=== PATIENT | male | born 1950 | race Caucasian/White ===

== ENCOUNTER 2017-04-11 16:31 | Inpatient (IN) | payer OTHER, MEDICARE ==
[~2017-04-11] VITALS: Ht 177.8 cm; Wt 68.0 kg
[~2017-04-11 16:31] MED LIST: AUGMENTIN 875-1 EACH PO; AUGMENTIN 875875 MG PO; BACITRACIN28.4 GM TOP; BOTOX SC; BOTOX200 UNIT AD; CELEBREX100 M1 PO; CELEBREX200 M1 PO; CELECOXIB200 M1 PO; CYCLOBENZAPRINE5 M2 PO; CYMBALTA60 M1 PO; DEXILANT60 M1 PO; DIAZEPAM5 M1 PO; DILAUDID2 MG PO; DOCUSATE SODIU100 M3 PO; IMITREX50 M1 PO; IMITREX50 MG PO; IMITREX6 MG/0.52 INJ; KEFLEX250 M1 PO; LYRICA300 M1 PO; MIRALAX119 GM PO; MULTIVITAMINS1 EAC9 PO; NEURONTIN300 MG PO; NEXIUM OTC PO; ONDANSETRON4 MG PO; OXYCODONE HCL5 M1 PO; PERCOCET 325 MG1 TA2 PO; PERCOCET 7.5-31 EACH PO; REGLAN10 MG PO; SUMATRIPTA6 MG/0.52 AD; TRAMADOL HCL50 M1 PO; VALIUM5 M1 PO; ZOFRAN ODT4 MG SL; ZOFRAN4 MG PO; ZOLPIDEM TART10 MG PO; ZOLPIDEM TARTRA10 M1 PO
[2017-04-11 17:01] LABS: ABSOLUTE BASOPHIL COUNT 0 /CUMM (0.0-0.2); ABSOLUTE EOSINOPHIL COUNT 0 /CUMM (0.0-0.7); ABSOLUTE GRANULOCYTE CT 17.1 /CUMM (1.4-6.5); ABSOLUTE LYMPH COUNT 0.6 /CUMM (1.2-3.4); ABSOLUTE MONOCYTE COUNT 0.4 /CUMM (0.10-0.60); BASOPHIL % 0.1 % (0.0-2.0); EOSINOPHIL % 0.1 % (0-5); HEMATOCRIT 50.4 % (42-52); MEAN CORPUSCULAR HGB CONC 33.4 G/DL (33.0-37.0); MEAN CORPUSCULAR VOLUME 86.8 FL (80.0-94.0); MEAN PLATELET VOLUME 9.7 FL (7.4-10.4); PLATELET COUNT 245 /CUMM (130-400); RBC DISTRIBUTION WIDTH 15.9 % (11.5-14.5); RED BLOOD CELL CT 5.81 /CUMM (4.70-6.10); WHITE BLOOD CELL COUNT 18.1 /CUMM (4.8-10.8)
--- NOTE | 2017-04-11 17:11 | ED GENERAL ADULT ---
History of Present Illness General Chief Complaint: General Adult Stated Complaint: "DR SENT HIM FOR INFECTION" Source: patient, family, old records Exam Limitations: no limitations Vital Signs & Intake/Output Vital Signs & Intake/Output Vital Signs Date Time Temp Pulse Resp B/P B/P Pulse O2 O2 Flow FiO2 Mean Ox Delivery Rate 04/11 2220 98.2 95 14 117/72 96 Nasal 2.0L Cannula 04/11 2102 98.8 100 16 121/74 92 Nasal 1.5L Cannula 04/11 1823 Nasal 2.0L Cannula 04/11 1637 97.6 102 15 113/75 89 Room Air Room Air ED Intake and Output 04/12 0000 04/11 1200 Intake Total 0 Output Total Balance 0 Intake, Oral 0 Patient 150 lb Weight Weight Reported by Patient Measurement Method Allergies Coded Allergies: Sulfa (Sulfonamide Antibiotics) (Severe, TONGUE SWELLING, RASH 04/11/17) Reconcile Medications Celecoxib 200 MG CAPSULE 1 CAP PO BID PAIN/INFLAMMATION (Reported) Dexlansoprazole (Dexilant) 60 MG CAP.BP 1 CAP PO DAILY GERD (Reported) Duloxetine HCl (Cymbalta) (Unknown Strength) CAPSULE.DR (Unknown Dose) PO BID NEUROPATHY (Reported) Morphine Sulfate 15 MG TABLET 1 TAB PO BID PAIN (Reported) Multiple Vitamin (Multivitamins) 1 EACH TABLET 1 TAB PO DAILY SUPPLEMENT ( Reported) Onabotulinumtoxina (Botox) 200 UNIT VIAL 1 VIAL AD AD PRN MIGRAINES (Reported ) Pregabalin (Lyrica) 300 MG CAPSULE 1 CAP PO BID NERVE PAIN (Reported) Sumatriptan Succinate 6 MG/0.5 ML PEN.INJCTR 6 MG AD AD PRN MIGRAINES ( Reported) Sumatriptan Succinate (Imitrex) 50 MG TABLET 1 TAB PO AD PRN MIGRAINES ( Reported) Zolpidem Tartrate 10 MG TABLET 1 TAB PO QPM SLEEP (Reported) Triage Note: PT SENT TO ED BY DR. ELAINE (NECK AND BACK SPECIALIST) FOR WORK UP OF ?INFECTED SPINE. PT HAD SPINAL DISC BIOPSY LAST SATURDAY WITH DR. MENDOSA AND HAS A RAPID DECLINE IN MENTATION (CONFUSION, LETHARGY, TALKING ABOUT THINGS THAT AREN'T THERE - PER ). PT ALSO HAS HAD FREQUENT FALLS. AFEBRILE IN TRIAGE, BUT VERY PALE AND HYPOXIC 88% RA. PLACED ON 2L NC OXYGEN. TAKEN TO EKG [facility] FOR EKG AND BLOOD WORK. Triage Nurses Notes Reviewed? yes Onset: Gradual Duration: day(s): Timing: recent history Injury Environment: home Severity: severe HPI: 66yo male with hx of migraines, pneumonia present to ED sent in by Orthopedic for further evaluation of AMS. Patient reports for the past 3 days he has felt general malaise, confusion, intermittent hallucinations. Patient's states the patient has been not acting himself, worsening over the past 3 days. Patient also with vomiting and pale appearance. states the patient has been admitted in the past for complicated infections. The patient had L4-5 bone biopsy with IR on 04/01/17 to evaluate for infection however is unaware of for results showed. Patient reports generalized headache for the past few days. He also reports cough and mentally productive for the past several days. He went to follow-up with a new orthopedic doctor regarding his back today. Physician saw that patient appeared ill and referred him to the hospital for evaluation. The patient denies fevers, chills, abdominal pain, dyspnea, chest pain. (Domonique Alvarado) Past History Travel History Traveled to [place] past 21 day No Medical History Any Pertinent Medical History? 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 No (Domonique Alvarado) Review of Systems Review of Systems Constitutional: Reports: see HPI. EENTM: Reports: no symptoms. Respiratory: Reports: see HPI. Cardiovascular: Reports: no symptoms. GI: Reports: see HPI. Genitourinary: Reports: no symptoms. Musculoskeletal: Reports: see HPI. Skin: Reports: no symptoms. Neurological/Psychological: Reports: see HPI. Hematologic/Endocrine: Reports: no symptoms. Immunologic/Allergic: Reports: no symptoms. All Other Systems: Reviewed and Negative (Domonique Alvarado) Physical Exam Physical Exam General Appearance: well developed/nourished, alert, awake Head: atraumatic, normal appearance Eyes: Bilateral: normal appearance, PERRL, EOMI. 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 No CVA/TIA Diagnosis: No Sepsis Present: Yes Sepsis Focused Exam Completed? Yes (Domonique Alvarado) ED Sepsis Exam Date of Focused Sepsis Exam: 04/11/17 Time of Focused Sepsis Exam: 2219 Sepsis Cardiac Exam: Regular Rate/Rhythm Sepsis Resp Exam: Rales (LEFT POSTERIOR LOBES) Sepsis Cap Refill Exam: <2 Sec Sepsis Peripheral Pulse Exam: Normal Sepsis Peripheral Pulse Location: Radial Sepsis Skin Color Exam: Pale Skin Temp/Moisture Exam: Warm/Dry (Domonique Alvarado) Progress Differential Diagnoses I considered the following diagnoses in my evaluation of the patient: [Sepsis, pneumonia, meningitis, spinal abscess, osteomyelitis, acute kidney injury] Plan of Care: Orders Procedure Date/time Status Regular Diet 04/12 B Active LACTIC ACID 04/12 0119 Active CEREBROSPINAL FLUID CULTURE 04/11 2331 Active CYTOLOGY SPECIMEN 04/11 2331 Active CSF TOTAL PROTEIN 04/11 2331 Active CEREBROSPINAL FL CELL CT 04/11 2331 Active CSF GLUCOSE 04/11 2331 Active OXYGEN SETUP (GEN) 04/11 2235 Active Saline Lock 04/11 2235 Active Admit to inpatient 04/11 2235 Active Vital Signs 04/11 2235 Active Activity/Ambulation 04/11 2235 Active Code Status 04/11 2235 Active LACTIC ACID 04/11 221 Active RAPID VIRAL INFLUENZA A 04/11 2015 Complete URINE DRUG SCREEN FOR ER ONLY 04/11 1757 Active URINALYSIS 04/11 1757 Active Add-on Test (ER Only) 04/11 1723 Active BLOOD CULTURE 04/11 1723 Active LACTIC ACID 04/11 1653 Complete C-REACTIVE PROTEIN 04/11 165 Complete EKG 04/11 1650 Active HIGH SENSITIVITY CRP 04/11 164 Complete WESTERGREN SED RATE 04/11 164 Complete COMPREHENSIVE METABOLIC PANEL 04/11 1646 Complete CBC WITHOUT DIFFERENTIAL 04/11 1646 Complete Laboratory Tests 04/11/17 2330: CSF Glucose Pending, CSF Total Protein Pending 04/11/17 2330: CSF WBC Pending, CSF RBC Pending, CSF Comment Pending 04/11/17 1653: Anion Gap 20 H, Estimated GFR 22 L, BUN/Creatinine Ratio 11.0, Glucose 120 H, Lactic Acid 2.5 H, Calcium 9.9, Total Bilirubin 0.9, AST 19, ALT 17 L, Alkaline Phosphatase 107, C-Reactive Prot, Quant > 9.0 H, C-React Prot High Sens > 15.0 H, Total Protein 7.4, Albumin 4.2, Globulin 3.2, Albumin/Globulin Ratio 1.3, CBC w Diff MAN DIFF ORDERED, RBC 5.81, MCV 86.8, MCH 29.0, MCHC 33.4, RDW 15.9 H, MPV 9.7, Gran % 94.0 H, Lymphocytes % 3.3 L, Monocytes % 2.5, Eosinophils % 0.1, Basophils % 0.1, Absolute Granulocytes 17.1 H, Segmented Neutrophils 85 H, Band Neutrophils 9 H, Absolute Lymphocytes 0.6 L, Lymphocytes 5 L, Monocytes 1 L, Absolute Monocytes 0.4, Absolute Eosinophils 0 , Absolute Basophils 0, Platelet Estimate ADEQUATE, Normocytic RBCs VERIFIED, Normochromic RBCs VERIFIED, ESR Westergren 2 Microbiology 04/11 2337 NASOPHARYN: Influenza Virus A & B Rapid Smear - COMP 04/11 2329 CENT N S: CSF Culture - RECD 04/11 2329 CENT N S: Gram Stain - RECD 04/11 1813 BLOOD: Blood Culture - RECD 04/11 1803 BLOOD: Blood Culture - RECD Spoke with Dr. Mendosa regarding this patient. They were evaluating for ? discitis/osteomyelitis L4-L5. Biopsy taken however no cultures were sent. If patient stays Dr. Mendosa would like re-biopsy for pathology and culture of L4- L5. Dr. Mendosa is available today and tomorrow for futher questions from the hospital team. This patient with signs of sepsis based on his blood work and clinical presentation. He was medicated with broad-spectrum antibiotics and given 2 L normal saline based on sepsis protocol. Discussed this patient with hospitalist Dr. Chirinos regarding his general medicine admission. Recommended we obtain LP prior to admission. Procedure performed by Dr. Ramos. Patient's son gave verbal consent prior to procedure. Diagnostic Imaging: Viewed by Me: Radiology Read. Discussed w/RAD: Radiology Read. Radiology Impression: PATIENT: DENI LIVINGSTON PRESENT AGE: 66 PATIENT ACCOUNT NO: [id number] : 52 LOCATION: [facility] ORDERING PHYSICIAN: Domonique MOCTEZUMA SERVICE DATE: 04/11/17 EXAM TYPE: RAD - XRY-CHEST XRAY, TWO VIEWS EXAMINATION: XR CHEST CLINICAL INFORMATION : Altered mental status. Abnormal breath sounds. COMPARISON: CT chest 2015. TECHNIQUE: 2 views of the chest were obtained. FINDINGS: No acute abnormality. The lungs are clear. There is no pulmonary vascular congestion or pleural effusion. There is no pneumothorax. The heart size is normal and the cardiac and the mediastinal contours are normal. There is no pulmonary vascular congestion. Orthopedic plate and screw at lower cervical spine. Multilevel degenerative spondylosis of dorsal spine. IMPRESSION: Unremarkable examination. DICTATED BY: Dameon Sanchez MD DATE/TIME DICTATED:04/11/171902 PUBLIC HEALTH TRAINING ASSISTANT :ALEKSANDER DATE/TIME TRANSCRIBED:04/11/171902 CONFIDENTIAL, DO NOT COPY WITHOUT APPROPRIATE AUTHORIZATION. <Electronically signed in Other Vendor System> SIGNED BY: Dameon Sanchez MD 04/11/171906, PATIENT: DENI LIIVNGSTON PRESENT AGE: 66 PATIENT ACCOUNT NO: [id number] : LOCATION: [facility] ORDERING PHYSICIAN: Domonique MOCTEZUMA SERVICE DATE: 04/11/17 EXAM TYPE: CAT - CT HEAD WO IV CONTRAST EXAMINATION: CT HEAD WITHOUT CONTRAST CLINICAL INFORMATION: Altered mental status. Rule out intracranial hemorrhage. COMPARISON: Prior CT from 03/22/2017. TECHNIQUE: Contiguous axial imaging was performed from the skull base to vertex without intravenous administration of contrast. The examination is limited by motion artifacts. DLP: 1082.08 mGy-cm FINDINGS: There is no evidence of acute intracranial hemorrhage or territorial infarction. No abnormal mass effect or midline shift is seen. Ahn to white matter differentiation is well preserved. No extra-axial fluid collections are identified. A small partially calcified meningioma along the mid right parietal convexity is stable. The ventricles are normal in size. Mild chronic white matter microangiopathic changes are again visible. The osseous structures and soft tissues are normal. The mastoid air cells and visualized portions of the paranasal sinuses are well aerated. IMPRESSION: No acute intracranial hemorrhage or territorial infarction. Slightly limited study with motion artifacts. DICTATED BY: Jigar Worthy MD DATE/TIME DICTATED:04/11/172044 PUBLIC HEALTH TRAINING ASSISTANT:ALEKSANDER DATE/TIME TRANSCRIBED:2044 CONFIDENTIAL, DO NOT COPY WITHOUT APPROPRIATE AUTHORIZATION. < Electronically signed in Other Vendor System> SIGNED BY: Jigar Worthy MD 04/11/172049, PATIENT: DENI LIVINGSTON PRESENT AGE: 66 PATIENT ACCOUNT NO: [id number] : 52 LOCATION: [facility] ORDERING PHYSICIAN: Domonique MOCTEZUMA SERVICE DATE: 04/11/17 EXAM TYPE: CAT - CT ABD & PELVIS W/O IV CONTRAS EXAMINATION: CT ABDOMEN AND PELVIS WITHOUT CONTRAST CLINICAL INFORMATION: Sepsis, acute kidney insufficiency. L5 hardware failure. COMPARISON: CT lumbar spine 03/22/2017. CT abdomen and pelvis 01/06/2016. TECHNIQUE: Multidetector volumetric imaging was performed from the superior aspect of the liver through the pubic symphysis. Sagittal and coronal reformatted images were obtained on the technologist's workstation. DLP: 650 mGy -cm FINDINGS: LUNG BASES: Mild, ill-defined airspace opacities at the lung bases obscured by respiratory motion artifact. This could represent atelectasis or developing pneumonia. LIVER, GALLBLADDER, AND BILIARY TREE: The unenhanced liver is normal in size, shape, and attenuation. No focal hepatic lesion or biliary ductal dilatation is present. The gallbladder is distended. No biliary ductal dilatation. PANCREAS: Unremarkable. SPLEEN: Unremarkable. ADRENAL GLANDS: Unremarkable. KIDNEYS AND URETERS: Several nonobstructing calculi, unchanged. No hydronephrosis. BLADDER: Unremarkable. GASTROINTESTINAL TRACT: The stomach is markedly distended. Otherwise unremarkable. ABDOMINAL WALL: No significant hernia is appreciated. LYMPH NODES: Normal. VASCULAR: Unremarkable. PELVIC VISCERA: Unremarkable. OSSEOUS STRUCTURES: No significant change in the appearance of the periprosthetic lucencies and areas of osteolysis at the L5 level with underlying fracture at the junction of the vertebral body with the pedicles with pseudoarthrosis. No paraspinal fluid collection. IMPRESSION: No change in the appearance of the hardware failure at L5 as described which has recently been biopsied. No paraspinal fluid collection. Bilateral nephrolithiasis with no hydronephrosis. Marked gastric distention. The gallbladder is also significantly distended. Mild ill-defined patchy airspace opacities at the lung bases which may represent atelectasis. DICTATED BY: Abelardo Lima MD DATE/TIME DICTATED:04/11/172052 PUBLIC HEALTH TRAINING ASSISTANT: ALEKSANDER DATE/TIME TRANSCRIBED:04/11/172052 CONFIDENTIAL, DO NOT COPY WITHOUT APPROPRIATE AUTHORIZATION. <Electronically signed in Other Vendor System> SIGNED BY: Abelardo Lima MD 04/11/172156 Initial ED EKG: SINUS RHYTHM @91BPM, INCREASED ST SEGMENTS IN INFERIOR LEADS Prior EKG: changed (04/28/15) (Domonique Alvarado) Departure Departure Disposition: STILL A PATIENT Condition: Stable Clinical Impression Primary Impression: Pneumonia Secondary Impressions: Sepsis Referrals: Patria DOUGLAS,Santiago Hough (PCP/Family) Departure Forms: Customer Survey General Discharge Information Admission Note Spoke With: Jarvis Gan MD Documentation of Exam: Documentation of any treatments & extenuating circumstances including Concerns Regarding Discharge (functional status, medication knowledge or non-compliance, living conditions, etc.) that warrant an admission rather than observation: [ Patient with signs of sepsis, possible pneumonia, requiring IV antibiotics, follow up with blood cultures, follow-up with cerebrospinal fluid analysis, ID consult, repeat labs, IV fluids, premature discharge could be medically safe] (Domonique Alvarado) PA/[employer]ER [employer]PAQUER Co-Sign Statement Statement: ED Attending supervision documentation- x I saw and evaluated the patient. I have also reviewed all the pertinent lab results and diagnostic results. I agree with the findings and the plan of care as documented in the PA's/INKER [employer] OPAQUER's documentation. Altered mental status s/p lumbar biopsy with rales leukocytosis elevated lactic acid pneumonia on CT scan [] I have reviewed the ED Record and agree with the PA's/INKER [employer]PAQUER's documentation. [] Additions or exceptions (if any) to the PAs/INKER [employer] OPAQUER's note and plan are summarized below: [] (Rachel DOUGLAS,Roman) Procedures Additional Procedures Additional Procedures: lumbar puncture Progress: Patient position prepped and draped. 1% lidocaine 5 ml infiltrated to L4-5 interspace. 5 ml clear spinal fluid taken without complication. Patient tolerated procedure without complication. (Roman Ramos MD) Critical Care Note Critical Care Note Critical Care Time: 30-74 min (Noy MOCTEZUMA,Domonique Sanchez)
--- NOTE | 2017-04-11 19:07 | RADIOLOGY REPORT ---
EXAMINATION: XR CHEST CLINICAL INFORMATION: Altered mental status. Abnormal breath sounds. COMPARISON: CT chest 11/14/2015. TECHNIQUE: 2 views of the chest were obtained. FINDINGS: No acute abnormality. The lungs are clear. There is no pulmonary vascular congestion or pleural effusion. There is no pneumothorax. The heart size is normal and the cardiac and the mediastinal contours are normal. There is no pulmonary vascular congestion. Orthopedic plate and screw at lower cervical spine. Multilevel degenerative spondylosis of dorsal spine. IMPRESSION: Unremarkable examination.
[2017-04-11] MEDS ORDERED: MORPHINE SULFAT15 M4 PO (19:46)
--- NOTE | 2017-04-11 20:50 | CT SCAN REPORT ---
EXAMINATION: CT HEAD WITHOUT CONTRAST CLINICAL INFORMATION: Altered mental status. Rule out intracranial hemorrhage. COMPARISON: Prior CT from 03/22/2017. TECHNIQUE: Contiguous axial imaging was performed from the skull base to vertex without intravenous administration of contrast. The examination is limited by motion artifacts. DLP: 1082.08 mGy-cm FINDINGS: There is no evidence of acute intracranial hemorrhage or territorial infarction. No abnormal mass effect or midline shift is seen. Ahn to white matter differentiation is well preserved. No extra-axial fluid collections are identified. A small partially calcified meningioma along the mid right parietal convexity is stable. The ventricles are normal in size. Mild chronic white matter microangiopathic changes are again visible. The osseous structures and soft tissues are normal. The mastoid air cells and visualized portions of the paranasal sinuses are well aerated. IMPRESSION: No acute intracranial hemorrhage or territorial infarction. Slightly limited study with motion artifacts.
--- NOTE | 2017-04-11 21:57 | CT SCAN REPORT ---
EXAMINATION: CT ABDOMEN AND PELVIS WITHOUT CONTRAST CLINICAL INFORMATION: Sepsis, acute kidney insufficiency. L5 hardware failure. COMPARISON: CT lumbar spine 03/22/2017. CT abdomen and pelvis 01/06/2016. TECHNIQUE: Multidetector volumetric imaging was performed from the superior aspect of the liver through the pubic symphysis. Sagittal and coronal reformatted images were obtained on the technologist's workstation. DLP: 650 mGy-cm FINDINGS: LUNG BASES: Mild, ill-defined airspace opacities at the lung bases obscured by respiratory motion artifact. This could represent atelectasis or developing pneumonia. LIVER, GALLBLADDER, AND BILIARY TREE: The unenhanced liver is normal in size, shape, and attenuation. No focal hepatic lesion or biliary ductal dilatation is present. The gallbladder is distended. No biliary ductal dilatation. PANCREAS: Unremarkable. SPLEEN: Unremarkable. ADRENAL GLANDS: Unremarkable. KIDNEYS AND URETERS: Several nonobstructing calculi, unchanged. No hydronephrosis. BLADDER: Unremarkable. GASTROINTESTINAL TRACT: The stomach is markedly distended. Otherwise unremarkable. ABDOMINAL WALL: No significant hernia is appreciated. LYMPH NODES: Normal. VASCULAR: Unremarkable. PELVIC VISCERA: Unremarkable. OSSEOUS STRUCTURES: No significant change in the appearance of the periprosthetic lucencies and areas of osteolysis at the L5 level with underlying fracture at the junction of the vertebral body with the pedicles with pseudoarthrosis. No paraspinal fluid collection. IMPRESSION: No change in the appearance of the hardware failure at L5 as described which has recently been biopsied. No paraspinal fluid collection. Bilateral nephrolithiasis with no hydronephrosis. Marked gastric distention. The gallbladder is also significantly distended. Mild ill-defined patchy airspace opacities at the lung bases which may represent atelectasis.
--- NOTE | 2017-04-12 01:45 | History & Physical ---
Ashley DOUGLAS,Melania 04/12/17 0144: General Information and HPI MD Statement: I have seen and personally examined DENI LIVINGSTON and documented this H&P. The patient is a 66 year old M who presented with a patient stated chief complaint of [altered mental status]. Source of Information: patient, family, old records Exam Limitations: confusion, poor historian History of Present Illness: 66 year old patient with a PMH significant for gastroparesis, migrains, GERD, chronic pain and a history of low back and neck surgeries, presented to [place] ED with his for altered mental status. Patient has a history of multiple back surgeries and he follow-up with Dr. Mendosa, he had CT and MRI done in the past few months and he had IR guided spine biopsy one week ago in [facility] however when he came to the ED they found out that the biopsy was never sent for culture. The patient's noticed that 3 days ago he started getting more confused and having twitches. He also had severe malaise and pallor, nausea, vomiting and decreased oral intake. He also endorses mild cough productive of whitish sputum Patient went to the [facility] orthopedic for a second opinion regarding back surgery for his chronic pain however he was found to be very weak and altered and was advised to come to the ED for evaluation. The patient also follow up with pain specialist Dr. Gerber who prescribed him PO morphine sulfate for his pain control. Patient denies fever, chills, chest pain, neck stiffness or worsening of his back pain. Patient was in his usual state of health 3 weeks ago except for chronic back pain and he said he was able to swim 3 hours daily. Patient gets home and use walker for ambulation. ED course: Vital signs: Blood pressure 124/64, pulse 88, temperature 98.4, pulse was 96 on 2 L Labs on admission: WBC 18.1, left shift, bands 9, sodium 143, potassium 4.7, BUN 32, creatinine 2.9, glucose 120, CRP 9, Patient had lumbar tap and CSF analysis showed RBCs of 58, glucose 82, protein 70, WBC 1 #13 and showed no acute intracranial hemorrhage or infarction Allergies/Medications Allergies: Coded Allergies: Sulfa (Sulfonamide Antibiotics) (Severe, TONGUE SWELLING, RASH 04/11/17) Past History Travel History Traveled to [place] past 21 day No Medical History Neurological: MIGRAINES EENT: NONE Cardiovascular: NONE Respiratory: NONE Gastrointestinal: GASTROPARESIS Hepatic: NONE Renal: NONE Musculoskeletal: fibromyalgia Psychiatric: NONE Endocrine: NONE Blood Disorders: NONE Cancer(s): NONE 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 Ambulation: independent IADLs Independent: shopping, housework, finances, food prep, telephone, transportation , medication admin. Review of Systems Review of Systems Constitutional: Reports: malaise, weakness. Cardiovascular: Denies: chest pain, edema, orthopena, palpitations, peripheral edema. Respiratory: Reports: cough, sputum production. GI: Reports: vomiting. Genitourinary: Denies: no symptoms. Musculoskeletal: Reports: back pain. Skin: Denies: no symptoms. Exam & Diagnostic Data Last 24 Hrs of Vital Signs/I&O Vital Signs Date Time Temp Pulse Resp B/P B/P Pulse O2 O2 Flow FiO2 Mean Ox Delivery Rate 04/12 0625 98.4 88 20 138/74 95 Nasal Cannula 04/12 0529 Nasal 2.0L Cannula 04/12 0523 98.4 88 18 124/64 96 Nasal 2.0L Cannula 04/11 2221 98.2 95 14 117/72 96 Nasal 2.0L Cannula 04/11 2103 98.8 100 16 121/74 92 Nasal 1.5L Cannula 04/11 1823 Nasal 2.0L Cannula 04/11 1637 97.6 102 15 113/75 89 Room Air Room Air Intake & Output 04/12 0800 04/12 0000 04/11 1600 Intake Total 250 0 Output Total Balance 250 0 Intake, IV 250 Intake, Oral 0 Patient 150 lb 150 lb Weight Weight Reported by Patient Reported by Patient Measurement Method Physical Exam General Appearance Cooperative, Flactuating level of consciousness HEENT Atraumatic, PERRLA, EOMI, Mucous Membr. moist/pink, neck is supple, negative kernigs and brudzenski sign Neck Supple, No JVD Cardiovascular Normal S1, Normal S2, No Murmurs Lungs Clear to Auscultation Abdomen Normal Bowel Sounds, Soft, No Tenderness Neurological Normal Speech, Strength at 5/5 X4 Ext, Normal Tone Extremities No Clubbing, No Cyanosis, No Edema Assessment/Plan Assessment: 66 year old patient with a PMH significant for gastroparesis, migrains, GERD, chronic pain and a history of low back and neck surgeries, presented to [place] ED with his for altered mental status. Patient has a history of multiple back surgeries and he follow-up with Dr. Mendosa, he had CT and MRI done in the past few months and he had IR guided spine biopsy one week ago in [facility] however when he came to the ED they found out that the biopsy was never sent for culture. The patient's noticed that 3 days ago he started getting more confused and having twitches. Patient was found to have leukocytosis with left shift and bandemia, mild ill-defined patchy airspace opacities at the lung bases, bilateral nephrolithiasis. Patient received 1 dose of vancomycin and ceftriaxone in the ED, LP was done however it didn't show any signs of bacterial meningitis #? CAP: Patient reports having mild cough with clear sputum CT chest showed patchy airspace opacities at the lung bases consistent with CPAP versus atelectasis Admit to general medicine floor IV ceftaz/vancomycin TRC/nebs Gentle IV fluid hydration Vitals every shift #Back pain with history of multiple vertebral fusion surgeries Orthopedic consult appreciated ID consult appreciated Pain management with by mouth Tylenol, IV Tylenol, morphine sulfate by mouth #AK I Most likely due to poor oral intake Encourage oral intake Gentle IV fluid hydration Monitoring of BEP Chronic medical condition: Continue home meds Full code DVT prophylaxis with subcutaneous heparin Regular diet As Ranked By This Provider Problem List: 1. Pneumonia Core Measures/Misc (11/04) Acute Coronary Syndrome ACS Diagnosis: No Congestive Heart Failure Congestive Heart Failure Diagnosis No Cerebrovascular Accident CVA/TIA Diagnosis: No VTE (View Protocol) VTE Risk Factors Age>40 No Mechanical VTE Prophylaxis d/t N/A MechProphylax Ordered No VTE Pharm Prophylaxis d/t NA PharmProphylax ordered Sepsis (View protocol) Sepsis Present: No Michael Duong 04/12/17 0431: Resident Review Statement Resident Statement: examined this patient, discussed with internal controls specialist, agreed with internal controls specialist, discussed with family, reviewed EMR data (avail), discussed with nursing , discussed with case mgmt, reviewed images, amended to note Other Findings: This is 66 year old patient with medical history of gastroparesis, migrains, GERD, chronic pain and a history of low back and neck surgeries. He presented to emergency department after bite sent by his orthopedic for further evaluation of altered mental status. Patient has a history of multiple back surgeries and he follow-up with Dr. Mendosa, he had CT and MRI done in the past few months and he had IR guided spine biopsy one week ago in [facility]. The patient's stated that 3 days ago he started getting more confused and having twitches movement. Also she noted that they become severly malaise and pallor, nausea, vomiting and decreased oral intake. Patient also complaints of abdominal discomfort and he think it's due to his gastroparesis. Lumbar puncture was done in the ED, the knee showed a count showed WBC of 1, glucose 86, protein 76 that ruled out bacterial meningitis. Physical examination, lab and imaging as above. Problem list: -Pneumonia we will treat as HCAP. -Confusion, altered mental status -Bilateral kidney stone -Acute kidney injury/dehydration -Leukocytosis Plan: -Admit patient to general medicine floor -Vitals every shift -Continue IV vancomycin and IV Fortaz -Obtain sputum culture, strep and Legionella urine antigen -Follow-up blood, CSF bloody fluid culture and final analysis. -ID consultation in a.m. -IV fluid hydration of D5 normal saline at 125 mL per hour -Recheck CBC and basic panel electrolytes in a.m -We start the patient home medication of morphine in a.m. -Orthopedic consultation in a.m. -Please confirm the patient home medications -Regular diet -Pain pathway -DVT prophylaxis subcutaneous heparin -Full code Malik DOUGLAS, [facility] 04/12/17 0846: General Information and HPI Allergies/Medications Home Med list Celecoxib 200 MG CAPSULE 1 CAP PO BID PAIN/INFLAMMATION (Reported) Dexlansoprazole (Dexilant) 60 MG CAP.BP 1 CAP PO DAILY GERD (Reported) Duloxetine HCl (Cymbalta) (Unknown Strength) CAPSULE.DR 30 MG PO BID NEUROPATHY (Reported) Morphine Sulfate 15 MG TABLET 1 TAB PO BID PAIN (Reported) Multiple Vitamin (Multivitamins) 1 EACH TABLET 1 TAB PO DAILY SUPPLEMENT ( Reported) Onabotulinumtoxina (Botox) 200 UNIT VIAL 1 VIAL AD AD PRN MIGRAINES (Reported ) Pregabalin (Lyrica) 300 MG CAPSULE 1 CAP PO BID PAIN (Reported) Sumatriptan Succinate 6 MG/0.5 ML PEN.INJCTR 6 MG AD AD PRN MIGRAINES ( Reported) Sumatriptan Succinate (Imitrex) 50 MG TABLET 1 TAB PO AD PRN MIGRAINES ( Reported) Zolpidem Tartrate 10 MG TABLET 1 TAB PO QPM SLEEP (Reported) Attending MD Review Statement Attending Statement Attending MD Statement: examined this patient, discuss w/resident/PA/WINDOWS TECHNICAL SPECIALIST, agreed w/resident/PA/WINDOWS TECHNICAL SPECIALIST, reviewed images, amended to note Attending Assessment/Plan: 66 yo M with h/o GERD, gastroparesis, chronic pain on oxycodone (pain management Dr. Carlos at [facility]), multiple lumbar surgeries is here for evaluation of altered mental status, malaise, nausea and poor PO intake. Patient follows with Dr. Mendosa and had a L4-5 bone biopsy last week by IR, pathology negative for malignancy but no culture sent. Vitals: afebrile, HR 80-100's, BP 113/75, sats 89% RA --> 96% on 2L. Exam: awake , oriented x 2, dry mucous membranes, negative kernig's and brudzinski's sign, no nuchal rigidity, otherwise unremarkable exam. Labs: WBC 18, bands 9, AG 20, BUN 32, creat 2.9 (baseline 0.8), lactic acid 2.5 --> 1.1, CRP elevated. CXR: neg. CT head neg. CT Abd/pelvis: no change in appearance of hardware failure at L5, no paraspinal fluid collection, bilateral nephrolithiasis, marked gastric distension, gallbladder significantly distended, ill-defined patchy airspace opacitices at lung bases. EKG: sinus rhythm. LP done in ER with cell count of WBC 1, elevated glucose and protein. No signs of meningitis. Assessment and plan: 1. Sepsis 2. Altered mental status - disorientation 3. Acute hypoxic respiratory failure 4. Community acquired pneumonia vs HCAP 5. JULIUS 6. Lactic acidosis 7. Chronic back pain - Admit to general medicine - Panculture - TRC nebs - Urine legionella and strep Ag - IV ceftaz and vanco - IV hydration - Trend lactic acid and renal functions - Follow CSF analysis, culture - ID consult - Ortho consult - Pain management morphine IR DVT ppx Hep SC. Full code. Please confirm CMR in AM and resume home meds.
[2017-04-12 06:25] VITALS: BP 138/74
--- NOTE | 2017-04-12 08:58 | Admission Certification ---
Admission Certification Certification Statement - As attending physician, I certify that at the time of - admission, based on clinical presentation, severity of - symptoms, need for further diagnostic testing and - therapeutic interventions, and risk of adverse outcomes - without in-hospital treatment, in my clinical assessment, - this patient requires an acute hospital stay for a minimum - of two nights or longer. I have also considered psychsocial - factors such as support system, advanced age, financial - issues, cognitive issues, and failed out-patient treatments, - past re-admission history, safety of patient, and lack of - compliance as applicable. Specific rationale supporting this admission is: Sepsis, altered mental status, pneumonia, JULIUS, lactic acidosis.
[2017-04-12 09:13] LABS: ABSOLUTE BASOPHIL COUNT 0 /CUMM (0.0-0.2); ABSOLUTE EOSINOPHIL COUNT 0.1 /CUMM (0.0-0.7); ABSOLUTE LYMPH COUNT 0.2 /CUMM (1.2-3.4); ABSOLUTE MONOCYTE COUNT 0.1 /CUMM (0.10-0.60); BASOPHIL % 0.3 % (0.0-2.0); EOSINOPHIL % 3.8 % (0-5); GRANULOCYTE % 86.3 % (42.2-75.2); MEAN CORPUSCULAR HGB CONC 33.6 G/DL (33.0-37.0); MEAN CORPUSCULAR VOLUME 86.1 FL (80.0-94.0); MEAN PLATELET VOLUME 9.7 FL (7.4-10.4); PLATELET COUNT 170 /CUMM (130-400); RBC DISTRIBUTION WIDTH 15.6 % (11.5-14.5); RED BLOOD CELL CT 4.79 /CUMM (4.70-6.10)
[2017-04-12 09:18] LABS: HEMATOCRIT 41.3 % (42-52); WHITE BLOOD CELL COUNT 3.5 /CUMM (4.8-10.8)
[2017-04-12] MEDS ORDERED: LYRICA300 M1 PO (11:04)
--- NOTE | 2017-04-12 13:06 | Cons- Infect Disease ---
General Information and HPI Consulting Request Date of Consult: 04/12/17 Requested By: Angelica De León MD Reason for Consult: Rule out surgical site infection Source of Information: patient, family, old records Exam Limitations: confusion History of Present Illness: This is a 66-year-old man with a history of low back pain, status post multiple spinal procedures, most recently 1-1/2 years prior to admission, at which time he underwent revision decompression and instrumented fusion L2 to L5, which was complicated by a durotomy, with recurrent back pain over the last several months , managed by Pain management in [place] with steroid injections and morphine, with a CT of the lumbar spine 3 weeks prior to admission revealing findings consistent with 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 On admission he was afebrile with an O2 sat of 88% on room air. Laboratory data revealed a white blood cell count of 18,000, with 85 segs and 9 bands, H&H 17 and 50, ESR 2, BUN/creatinine 32 and 2.9, lactic acid 2.5, high sensitive CRP greater than 15, with normal liver enzymes. Chest x-ray was negative. CT of the head was negative for any acute process. CT of the abdomen and pelvis revealed no change in the appearance of the hardware failure at L5, with bilateral nephrolithiasis, marked gastric distention and mild ill-defined patchy opacities in the lung bases. A lumbar puncture was performed and revealed 1 white blood cell and an elevated protein of 70.. He was given Vancomycin, Ceftriaxone and Ceftazidime. He has remained afebrile overnight. He remains confused and is unable to provide an accurate history. Allergies/Medications Allergies: Coded Allergies: Sulfa (Sulfonamide Antibiotics) (Severe, TONGUE SWELLING, RASH 04/11/17) Home Med List: Celecoxib 200 MG CAPSULE 1 CAP PO BID PAIN/INFLAMMATION (Reported) Dexlansoprazole (Dexilant) 60 MG CAP.DR.BP 1 CAP PO DAILY GERD (Reported) Duloxetine HCl (Cymbalta) (Unknown Strength) CAPSULE.DR 30 MG PO BID NEUROPATHY (Reported) Morphine Sulfate 15 MG TABLET 1 TAB PO BID PAIN (Reported) Multiple Vitamin (Multivitamins) 1 EACH TABLET 1 TAB PO DAILY SUPPLEMENT ( Reported) Onabotulinumtoxina (Botox) 200 UNIT VIAL 1 VIAL AD AD PRN MIGRAINES (Reported ) Pregabalin (Lyrica) 300 MG CAPSULE 1 CAP PO BID PAIN (Reported) Sumatriptan Succinate 6 MG/0.5 ML PEN.INJCTR 6 MG AD AD PRN MIGRAINES ( Reported) Sumatriptan Succinate (Imitrex) 50 MG TABLET 1 TAB PO AD PRN MIGRAINES ( Reported) Zolpidem Tartrate 10 MG TABLET 1 TAB PO QPM SLEEP (Reported) Past History Travel History Traveled to [place] past 21 day No Medical History Blood Transfusion Hx: No Neurological: MIGRAINES EENT: NONE Cardiovascular: NONE Respiratory: NONE Gastrointestinal: GASTROPARESIS Hepatic: NONE Renal: NONE Musculoskeletal: fibromyalgia Psychiatric: NONE Endocrine: NONE Blood Disorders: NONE Cancer(s): NONE 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 Home Services at Home: None Smoking Status: Never Smoked Functional Ability ADLs Independent: dressing, eating, toileting, bathing. Ambulation: independent IADLs Independent: shopping, housework, finances, food prep, telephone, transportation , medication admin. Review of Systems Review of Systems All Other Systems: Reviewed and Negative Exam & Diagnostic Data Last 24 Hrs of Vital Signs/I&O Vital Signs Date Time Temp Pulse Resp B/P B/P Pulse O2 O2 Flow FiO2 Mean Ox Delivery Rate 04/12 06 98.4 88 20 138/74 95 Nasal Cannula 04/12 05 Nasal 2.0L Cannula 04/12 05 98.4 88 18 124/64 96 Nasal 2.0L Cannula 04/11 2220 98.2 95 14 117/72 96 Nasal 2.0L Cannula 04/113 98.8 100 16 121/74 92 Nasal 1.5L Cannula 04/11 1823 Nasal 2.0L Cannula 04/11 1637 97.6 102 15 113/75 89 Room Air Room Air Intake & Output 04/12 1600 04/12 0800 04/12 0000 Intake Total 250 0 Output Total Balance 250 0 Intake, IV 250 Intake, Oral 0 Number 1 Bowel Movements Patient 150 lb 150 lb Weight Weight Reported by Patient Reported by Patient Measurement Method Physical Exam Other Physical Findings: Afebrile. He is awake and alert, confused, but in no acute distress. Skin reveals no rash. HEENT negative. Neck is supple with no adenopathy. Lungs are clear. Heart regular rhythm with no murmur. Abdomen is soft, nontender with positive bowel sounds. Back no CVA tenderness. Extremities no cyanosis, clubbing or edema. Neuro is without focality. Last 24 Hours of Lab Results: Laboratory Tests 04/12 04/12 04/12 04/11 0851 0730 0119 2330 Chemistry Sodium (137 - 145 mmol/L) 139 Potassium (3.5 - 5.1 mmol/L) 3.7 Chloride (98 - 107 mmol/L) 108 H Carbon Dioxide (22 - 30 mmol/L) 19 L Anion Gap (5 - 16) 12 BUN (9 - 20 mg/dL) 32 H Creatinine (0.7 - 1.2 mg/dL) 1.9 H Estimated GFR (>60 ml/min) 36 L BUN/Creatinine Ratio (7 - 25 %) 16.8 Lactic Acid (0.7 - 2.1 mmol/L) 1.1 Hematology CBC w Diff MAN DIFF ORDERED WBC (4.8 - 10.8 /CUMM) 3.5 L RBC (4.70 - 6.10 /CUMM) 4.79 Hgb (14.0 - 18.0 G/DL) 13.9 L Hct (42 - 52 %) 41.3 L MCV (80.0 - 94.0 FL) 86.1 MCH (27.0 - 31.0 PG) 29.0 MCHC (33.0 - 37.0 G/DL) 33.6 RDW (11.5 - 14.5 %) 15.6 H Plt Count (130 - 400 /CUMM) 170 MPV (7.4 - 10.4 FL) 9.7 Gran % (42.2 - 75.2 %) 86.3 H Lymphocytes % (20.5 - 51.1 %) 5.9 L Monocytes % (1.7 - 9.3 %) 3.7 Eosinophils % (0 - 5 %) 3.8 Basophils % (0.0 - 2.0 %) 0.3 Absolute Granulocytes (1.4 - 6.5 /CUMM) 3.0 Segmented Neutrophils (42.2 - 75.2 %) 68 Band Neutrophils (0.0 - 5.0 %) 13 H Absolute Lymphocytes (1.2 - 3.4 /CUMM) 0.2 L Lymphocytes (20.5 - 51.1 %) 7 L Monocytes (1.7 - 9.3 %) 4 Absolute Monocytes (0.10 - 0.60 /CUMM) 0.1 Eosinophils (0 - 5.0 %) 8 H Absolute Eosinophils (0.0 - 0.7 /CUMM) 0.1 Absolute Basophils (0.0 - 0.2 /CUMM) 0 Platelet Estimate (ADEQUATE) VERIFIED BY SMEAR Normocytic RBCs VERIFIED Normochromic RBCs VERIFIED Other Body Source CSF Glucose (40 - 70 mg/dL) 82 H CSF Total Protein (12 - 60 mg/dL) 70 H 04/11 04/11 04/11 2330 2219 1653 Chemistry Sodium (137 - 145 mmol/L) 143 Potassium (3.5 - 5.1 mmol/L) 4.7 Chloride (98 - 107 mmol/L) 101 Carbon Dioxide (22 - 30 mmol/L) 22 Anion Gap (5 - 16) 20 H BUN (9 - 20 mg/dL) 32 H Creatinine (0.7 - 1.2 mg/dL) 2.9 H Estimated GFR (>60 ml/min) 22 L BUN/Creatinine Ratio (7 - 25 %) 11.0 Glucose (65 - 99 mg/dL) 120 H Lactic Acid (0.7 - 2.1 mmol/L) Cancelled 2.5 H Calcium (8.4 - 10.2 mg/dL) 9.9 Total Bilirubin (0.2 - 1.3 mg/dL) 0.9 AST (17 - 59 U/L) 19 ALT (21 - 72 U/L) 17 L Alkaline Phosphatase (< 127 U/L) 107 C-Reactive Prot, Quant (<1.0 mg/dL) > 9.0 H C-React Prot High Sens (1.0 - 3.0 mg/L) > 15.0 H Total Protein (6.3 - 8.2 g/dL) 7.4 Albumin (3.5 - 5.0 g/dL) 4.2 Globulin (1.9 - 4.2 gm/dL) 3.2 Albumin/Globulin Ratio (1.1 - 2.2 %) 1.3 Hematology CBC w Diff MAN DIFF ORDERED WBC (4.8 - 10.8 /CUMM) 18.1 H RBC (4.70 - 6.10 /CUMM) 5.81 Hgb (14.0 - 18.0 G/DL) 16.8 Hct (42 - 52 %) 50.4 MCV (80.0 - 94.0 FL) 86.8 MCH (27.0 - 31.0 PG) 29.0 MCHC (33.0 - 37.0 G/DL) 33.4 RDW (11.5 - 14.5 %) 15.9 H Plt Count (130 - 400 /CUMM) 245 MPV (7.4 - 10.4 FL) 9.7 Gran % (42.2 - 75.2 %) 94.0 H Lymphocytes % (20.5 - 51.1 %) 3.3 L Monocytes % (1.7 - 9.3 %) 2.5 Eosinophils % (0 - 5 %) 0.1 Basophils % (0.0 - 2.0 %) 0.1 Absolute Granulocytes (1.4 - 6.5 /CUMM) 17.1 H Segmented Neutrophils (42.2 - 75.2 %) 85 H Band Neutrophils (0.0 - 5.0 %) 9 H Absolute Lymphocytes (1.2 - 3.4 /CUMM) 0.6 L Lymphocytes (20.5 - 51.1 %) 5 L Monocytes (1.7 - 9.3 %) 1 L Absolute Monocytes (0.10 - 0.60 /CUMM) 0.4 Absolute Eosinophils (0.0 - 0.7 /CUMM) 0 Absolute Basophils (0.0 - 0.2 /CUMM) 0 Platelet Estimate (ADEQUATE) ADEQUATE Normocytic RBCs VERIFIED Normochromic RBCs VERIFIED ESR Westergren (0 - 10 MM) 2 Other Body Source CSF WBC (0 - 5 /CUMM) 1 CSF RBC (-0 /CUMM) 58 H CSF Comment Last 24 Hours of Jesus Results: Blood cultures April 11 negative CSF culture April 11 negative Rapid flu swab April 11 negative Urine culture April 12 pending Urine strep pneumo antigen and Legionella antigen April 12 pending Diagnostic Data Recent Imaging Findings: Chest x-ray negative. CT of the head negative for any acute process. CT of the abdomen and pelvis revealed no change in the appearance of the hardware failure at L5, with bilateral nephrolithiasis, marked gastric distention and mild ill-defined patchy opacities in the lung bases. 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 The recent imaging revealing evidence of hardware failure has raised concern for infection, which could be secondary to his recent steroid injections or his previous surgery, and this will need to be ruled out. Unfortunately the CT- guided biopsy done as an outpatient was not submitted for culture and the pathology report only ruled out malignancy. He is apparently scheduled for an open biopsy later today, which can be submitted for culture. He was, unfortunately, begun on antibiotics, which, hopefully, will not affect the OR cultures and he should be followed off antibiotics pending these results. His confusion is likely medication related, with no evidence for meningitis. His renal failure may be multifactorial and appears to be improving. He does not appear to have any evidence for pneumonia; therefore he can be followed off antibiotics pending OR cultures. His white blood cell count has drastically decreased, but, with increased bands, an underlying infection must be considered. Suggestion: 1. Await exploration in the OR later today for bone biopsy/cultures 2. Further management of his renal failure per Medicine 3. Discontinue Ceftazidime and follow off antibiotics pending above Yamilet Celis MD will be covering until March 5 Consult Acknowledgment - Thank you for your consult request.
[2017-04-12 14:07] VITALS: BP 104/62
--- NOTE | 2017-04-12 15:53 | PN- Att Addend ---
Attending Addendum Attending Brief Note Patient seen and examined, mental state is improving but slight confusion is still there. Currently pain is well-managed. Vital Signs Date Time Temp Pulse Resp B/P B/P Pulse O2 O2 Flow FiO2 Mean Ox Delivery Rate 04/12 1407 98.3 90 18 104/62 95 Room Air 04/12 0800 95 Nasal 2.0L Cannula 04/12 0625 98.4 88 20 138/74 95 Nasal Cannula 04/12 0529 Nasal 2.0L Cannula 04/12 0523 98.4 88 18 124/64 96 Nasal 2.0L Cannula 04/11 2221 98.2 95 14 117/72 96 Nasal 2.0L Cannula 04/11 2103 98.8 100 16 121/74 92 Nasal 1.5L Cannula 04/11 1823 Nasal 2.0L Cannula 04/11 1637 97.6 102 15 113/75 89 Room Air Room Air on exam; awake, nad. cv; s1,s2, rrr resp; clear. abd; soft, nt, bs+ ext; no edema. Laboratory Tests 04/12 04/12 04/12 04/11 0851 0730 0119 2330 Chemistry Sodium (137 - 145 mmol/L) 139 Potassium (3.5 - 5.1 mmol/L) 3.7 Chloride (98 - 107 mmol/L) 108 H Carbon Dioxide (22 - 30 mmol/L) 19 L Anion Gap (5 - 16) 12 BUN (9 - 20 mg/dL) 32 H Creatinine (0.7 - 1.2 mg/dL) 1.9 H Estimated GFR (>60 ml/min) 36 L BUN/Creatinine Ratio (7 - 25 %) 16.8 Lactic Acid (0.7 - 2.1 mmol/L) 1.1 Hematology CBC w Diff MAN DIFF ORDERED WBC (4.8 - 10.8 /CUMM) 3.5 L RBC (4.70 - 6.10 /CUMM) 4.79 Hgb (14.0 - 18.0 G/DL) 13.9 L Hct (42 - 52 %) 41.3 L MCV (80.0 - 94.0 FL) 86.1 MCH (27.0 - 31.0 PG) 29.0 MCHC (33.0 - 37.0 G/DL) 33.6 RDW (11.5 - 14.5 %) 15.6 H Plt Count (130 - 400 /CUMM) 170 MPV (7.4 - 10.4 FL) 9.7 Gran % (42.2 - 75.2 %) 86.3 H Lymphocytes % (20.5 - 51.1 %) 5.9 L Monocytes % (1.7 - 9.3 %) 3.7 Eosinophils % (0 - 5 %) 3.8 Basophils % (0.0 - 2.0 %) 0.3 Absolute Granulocytes (1.4 - 6.5 /CUMM) 3.0 Segmented Neutrophils (42.2 - 75.2 %) 68 Band Neutrophils (0.0 - 5.0 %) 13 H Absolute Lymphocytes (1.2 - 3.4 /CUMM) 0.2 L Lymphocytes (20.5 - 51.1 %) 7 L Monocytes (1.7 - 9.3 %) 4 Absolute Monocytes (0.10 - 0.60 /CUMM) 0.1 Eosinophils (0 - 5.0 %) 8 H Absolute Eosinophils (0.0 - 0.7 /CUMM) 0.1 Absolute Basophils (0.0 - 0.2 /CUMM) 0 Platelet Estimate (ADEQUATE) VERIFIED BY SMEAR Normocytic RBCs VERIFIED Normochromic RBCs VERIFIED Other Body Source CSF Glucose (40 - 70 mg/dL) 82 H CSF Total Protein (12 - 60 mg/dL) 70 H 04/11 04/11 04/11 2330 2219 1653 Chemistry Sodium (137 - 145 mmol/L) 143 Potassium (3.5 - 5.1 mmol/L) 4.7 Chloride (98 - 107 mmol/L) 101 Carbon Dioxide (22 - 30 mmol/L) 22 Anion Gap (5 - 16) 20 H BUN (9 - 20 mg/dL) 32 H Creatinine (0.7 - 1.2 mg/dL) 2.9 H Estimated GFR (>60 ml/min) 22 L BUN/Creatinine Ratio (7 - 25 %) 11.0 Glucose (65 - 99 mg/dL) 120 H Lactic Acid (0.7 - 2.1 mmol/L) Cancelled 2.5 H Calcium (8.4 - 10.2 mg/dL) 9.9 Total Bilirubin (0.2 - 1.3 mg/dL) 0.9 AST (17 - 59 U/L) 19 ALT (21 - 72 U/L) 17 L Alkaline Phosphatase (< 127 U/L) 107 C-Reactive Prot, Quant (<1.0 mg/dL) > 9.0 H C-React Prot High Sens (1.0 - 3.0 mg/L) > 15.0 H Total Protein (6.3 - 8.2 g/dL) 7.4 Albumin (3.5 - 5.0 g/dL) 4.2 Globulin (1.9 - 4.2 gm/dL) 3.2 Albumin/Globulin Ratio (1.1 - 2.2 %) 1.3 Hematology CBC w Diff MAN DIFF ORDERED WBC (4.8 - 10.8 /CUMM) 18.1 H RBC (4.70 - 6.10 /CUMM) 5.81 Hgb (14.0 - 18.0 G/DL) 16.8 Hct (42 - 52 %) 50.4 MCV (80.0 - 94.0 FL) 86.8 MCH (27.0 - 31.0 PG) 29.0 MCHC (33.0 - 37.0 G/DL) 33.4 RDW (11.5 - 14.5 %) 15.9 H Plt Count (130 - 400 /CUMM) 245 MPV (7.4 - 10.4 FL) 9.7 Gran % (42.2 - 75.2 %) 94.0 H Lymphocytes % (20.5 - 51.1 %) 3.3 L Monocytes % (1.7 - 9.3 %) 2.5 Eosinophils % (0 - 5 %) 0.1 Basophils % (0.0 - 2.0 %) 0.1 Absolute Granulocytes (1.4 - 6.5 /CUMM) 17.1 H Segmented Neutrophils (42.2 - 75.2 %) 85 H Band Neutrophils (0.0 - 5.0 %) 9 H Absolute Lymphocytes (1.2 - 3.4 /CUMM) 0.6 L Lymphocytes (20.5 - 51.1 %) 5 L Monocytes (1.7 - 9.3 %) 1 L Absolute Monocytes (0.10 - 0.60 /CUMM) 0.4 Absolute Eosinophils (0.0 - 0.7 /CUMM) 0 Absolute Basophils (0.0 - 0.2 /CUMM) 0 Platelet Estimate (ADEQUATE) ADEQUATE Normocytic RBCs VERIFIED Normochromic RBCs VERIFIED ESR Westergren (0 - 10 MM) 2 Other Body Source CSF WBC (0 - 5 /CUMM) 1 CSF RBC (-0 /CUMM) 58 H CSF Comment A/P; 66 y/o M with pmh sig for GERD, gastroparesis, chronic pain on oxycodone ( pain management Dr. Carlos at [place]), multiple lumbar surgeries is here for evaluation of altered mental status, malaise, nausea and poor PO intake. Patient follows with Dr. Mendosa and had a L4-5 bone biopsy last week by IR, pathology negative for malignancy but no culture sent. Patient also has acute renal failure. Appreciate infectious disease input. Dr. Irving spoke with Dr. Mendosa who plans to take patient to our today for bone biopsy and culture. We need to find out the source of infection. Per infectious disease, antibiotics would be discontinued for now and will follow-up on bone cultures. Patient's altered mental state could be secondary to dehydration, acute renal failure or use of narcotics. We'll try to avoid narcotic use and will manage his pain with nonnarcotic regimen. Patient on IV fluids. Creatinine slowly correcting. We' ll continue to monitor. DVt px; Hep sq.
--- NOTE | 2017-04-12 16:26 | Event Note ---
Event Note Event Note: Patients Whitney provided a signed copy of a Do Not Resuscitate / Do Not Intubated per the request of the admitting housestaff. Code status is change in the computer and a copy of the document is placed in the chart.
[2017-04-12 17:18] VITALS: BP 122/62
--- NOTE | 2017-04-12 17:31 | CT SCAN REPORT ---
CLINICAL HISTORY: This patient is a 66 years old male with presumed osteomyelitis at the L4-L5 levels, who presents to Interventional Radiology for CT-guided biopsy of the L4 and L5 vertebral bodies as well as disc aspiration at the L4-L5 level. Culture only as requested by Dr. Mendosa. Due to the patient's usage of Celebrex of unknown duration, needle aspiration will be performed. If a bone drill is required, the patient will need to come off of nonsteroidals for 48 hours. There is a slightly elevated bleeding risk due to the presence of nonsteroidals at the current time, however this considered very minimal and the potential benefit of obtaining a positive culture far outweighs this low risk. These issues were discussed with Dr. Mendosa and the patient's , Marly, who are in agreement to proceed and understand the risks involved. Considering the lytic areas of the bone and around the screws, a needle should be able to be navigated into the areas of concern without the need of a bone drill. PROCEDURES: 1. Limited preprocedure CT of the lumbar spine. 2. Aspiration of the L4 vertebral body, L4-L5 disc space and L5 vertebral body along a previous screw tract. PHYSICIANS: Dr. Jacquelyn Cast (attending) MONITORING: The procedure was performed with continuous blood pressure, pulse oximetry as well as heart rate monitoring was performed by an independent registered nurse. MEDICATIONS: 1. Versed 0 mg and fentanyl 100 mcg IV were administered. 2. Lidocaine 1%, 8 mL, SQ. COMPLICATIONS: None ESTIMATED BLOOD LOSS: <5 mL SPECIMENS: Fine-needle aspirates at L4, L4-L5 disc space and L5 IMPLANT: None CONTRAST: None TOTAL DLP: 321.31 mGy-cm SITE MARKING: As part of the preprocedure verification policy, a site marking procedure was initiated. Due to the nature the procedure, the insertion site could not be predetermined thus invoking the policy of exemption to site laterality and marking. Insertion site marking was performed in the procedure room in conjunction with imaging confirmation. PROCEDURE NOTE: Informed consent was obtained from the patient's , Marly, prior to the procedure. During this process, the procedure and potential alternatives were explained along with the intended outcome and benefits. The risks of the procedure, including the possibility of an unsuccessful procedure, as well as the risk of not doing the procedure, were discussed. The patient's was given the opportunity to ask questions regarding the procedure and appeared competent to make decisions. A signed consent form documenting this discussion was placed in the medical record. A time-out procedure was performed. The patient was placed prone on the CT table. A limited CT of the lumbar spine was performed to localize the L4-L5 level and to choose appropriate needle entry and trajectory. The lower back was prepped and draped in usual sterile fashion. All elements of maximal sterile barrier technique followed including use of cap, mask, sterile gown, sterile gloves, a sterile full body drape and hand hygiene. Also followed skin preparation with 2% chlorhexidine for cutaneous antisepsis, and sterile ultrasound preparation with sterile gel and probe cover when applicable. The skin and subcutaneous tissues were anesthetized with lidocaine. Under CT-guidance, a 20 g 10 cm Pa needle with trocar was advanced to the L4 inferior endplate where multiple small lytic areas were seen clustered. Unfortunately this was covered by sclerotic bone and I was unable to break through this with the needle. Aspiration was performed and indeed blood-tinged fluid was able to be aspirated and placed in a sterile cup by saline washing the needle. Under CT guidance a 20-gauge 10 cm Pa needle was trocar was advanced into the L4-L5 disc space. Slightly cloudy orange fluid was aspirated, approximately 0.5 mL, and was placed in a sterile cup. Under CT guidance a 20-gauge 10 cm Pa needle with trocar was advanced into the L5 screw tract from a prior surgery. Likely fluid was aspirated, approximately 0.5 mL, and was placed in a sterile cup. Samples were sent for culture, which I personally confirmed at the end of the procedure. The patient tolerated the procedure well. FINDINGS: Lytic regions in the L4 and L5 inferior and superior endplates, respectively. Gas and lytic regions within the L4-L5 disc space. All 3 areas successfully aspirated. At L4, the fluid was blood-tinged, at the disc space it was orange-colored and slightly cloudy and at the L5 vertebral body the fluid was again blood-tinged. IMPRESSION: Successful CT-guided aspiration of the L4 vertebral body, L5 vertebral body and L4-L5 disc interspace. PLAN: The patient was stable after the procedure and was transferred back to his inpatient hospital room.
--- NOTE | 2017-04-12 19:45 | Event Note ---
Event Note Event Note: Situation: I was called by nursing staff as the patient was being more confused, and also family wanted to know the update. Background: 66-year-old man with history of low back pain, status post multiple spinal procedures and complications, with recurrent back pain was taking opiates for pain control and currently admitted in the general medical floor for altered mental status, renal failure and questionable infection due to leukocytosis. He had a IR guided vertebral biopsy earlier today which went successfully according to the records. Assessment/recommendation: Patient's vitals were normal, and was not drowsy or in picture of opiate intoxication at all and thus known use of Narcan. Patient apparently has been confused even before the admission but this is worse according to family members - his Mandy and his son Harlan. He doesn't have nuchal rigidity, or any fever, or seizure or any focal neurologic deficit other than altered mental status. His recent lab works are pending. Orthopedics, ID among others have been on board. * Patient's local exam (spine exam) shows site of procedure as expected with a minimal bleed, no bruise or leaks or swelling. No nuchal rigidity, or fever. * I spoke with hospitalist Dr Gan about the situation who suggested the detailed clinical examination, and also consider calling ID service for recs of abx as the procedure (biopsy, culture) is now complete, as his mentation has changed further. * I spoke with Dr Smith (ID service), and discussed in detail about the situation and the updates. He had seen the patient earlier thus considering his history, examination and updates, he suggested keeping him off antibiotics, with very low suspicion of [employer] infection at this point of time. However, his AMS could be due to renal failure, opiate withdrawal among others acting in combination. * I would not start any sedative medications on the patient, which could mask his mentation level, especially benzodiazepines, opiates, and also given his prolonged QTC would avoid Haldol and other QTC prolonging drugs unless absolutely necessary. * I had ordered 4 point restraints when the patient was confused, agitated, trying to have unsafe ambulation, trying to pull out IV lines and was unsafe for himself while his family members were present as well. I would continue the same for now. * Isacc Mendosa MD would be updated as well. * Family members (pt's and son) explained along the process who understood the situation and agreed with the plan. Update: Isacc Mendosa MD contacted me (Koko Jiménez MD) to mention that patient had similar episode in 2016 as well, where he got confused postoperatively upon receiving different types of opiates but was not having the symptoms when he was only on oxycodone and was thus discharged on that medication. Although it is not clear why this could happen, the masses has been noted and will be passed on to the primary team in the morning.
[2017-04-12 21:11] LABS: ABSOLUTE BASOPHIL COUNT 0 /CUMM (0.0-0.2); ABSOLUTE EOSINOPHIL COUNT 0.2 /CUMM (0.0-0.7); ABSOLUTE GRANULOCYTE CT 3.6 /CUMM (1.4-6.5); ABSOLUTE LYMPH COUNT 0.5 /CUMM (1.2-3.4); ABSOLUTE MONOCYTE COUNT 0.3 /CUMM (0.10-0.60); BASOPHIL % 0.5 % (0.0-2.0); EOSINOPHIL % 3.8 % (0-5); GRANULOCYTE % 78.5 % (42.2-75.2); HEMATOCRIT 37.4 % (42-52); MEAN CORPUSCULAR HGB 28.6 PG (27.0-31.0); MEAN CORPUSCULAR HGB CONC 32.7 G/DL (33.0-37.0); MEAN CORPUSCULAR VOLUME 87.3 FL (80.0-94.0); PLATELET COUNT 160 /CUMM (130-400); RBC DISTRIBUTION WIDTH 15.4 % (11.5-14.5); RED BLOOD CELL CT 4.28 /CUMM (4.70-6.10); WHITE BLOOD CELL COUNT 4.6 /CUMM (4.8-10.8)
[2017-04-13 06:26] VITALS: BP 116/76
--- NOTE | 2017-04-13 09:23 | PN- Orthopedic ---
Surgical Brief Attending Note Brief Attending Note: Patient seen by Dr. Mendosa for inpatient orthopaedic spine care consultation on 04/12/2017 @ 09:00 M per request by the [facility] Medicine Hospitalist Service: Michael Garcia is a 66-year-old white male well known to my practice with a long history of multiple surgeries for decompression and stabilization of diffuse spinal degenerative disease who was doing well after his last decompression and revision fusion in 10/04/2015 until he began to have recurrent back and left leg pain followed quickly by new right leg radiation over the last several months without specific inciting injury, event or change (and in fact despite a considerable decrease) in his normal extremely high level of exercise activity. It should be noted that he had moderate but tolerable back pain beginning in early 2016 for which he sought pain management and received several injections. Although he had some temporary improvement from pain management procedures, his chronic baseline symptoms did not change long-term with these treatments and he continued to maintain high level exercises but required low dose narcotics. in late 2016 he had hand surgery complicated by infection and requiring antibiotic treatment. Over a few months (since approximately mid-December,) his pain worsened despite optimized noninvasive and minimally invasive treatment protocols. It was at this point that he developed new right leg radiating symptoms. He had to curtail exercise and even so required increased narcotic pain meddication. Workup revealed hardware loosening, lytic vertebral body changes around the pedicle screws and erosive and/or lytic endplate changes without significant fluid collection or phlegmon to suggest abscess at the L4-L5 level. These findings certainly explained his axial pain as well as his recurrent left and new right leg symptoms. Comparing different study modalities during his workup it is difficult to tell the timecourse over which this osseous lysis may have occurred as an indicator of whether these changes are mostly of mechanical or potentially localized erosive non-mechanical pathological ( infectious or neoplastic) origin and progression. There is certainly the possibility that both causes may be significantly causative. In order to rule out infection and neoplasm a biopsy was ordered for pathology and culture and performed on 04/01/2017. Pathology report indicated "bone and fibrohyaline cartilage" and reported "negative for evidence of malignancy". Unfortunately, as far as I can tell, no microbiology specimens were sent or processed. Once this was noted, I planned for a second biopsy to obtain micro specimens. However, given that the patient was stable with no fever or other significant indications of infection (including report of no purulent material on pathoilogic biopsy) and since the patient's care was in the process of being referred for tertiary care because [facility] is not currently set up for anterior spinal procedures of the magnitude required in this case, the second biopsy for culture was deferred to the transfer facility arranging to ultimately perform his surgery assuming no clinical change to more acutely suggest active infection. The patient was referred to [facility] for transfer of [facility] surgical care. Although his function remained stable, with no fever or systemic symptoms and the only new deficit being a subtle new right extensor hallucis longus and anterior tibialis weakness, his pain increased beyond what had previously been controlled by his pain management provider and I recommended that he go to the [facility]. The patient still felt that he could tolerate symptoms but wished to have a second opinion earlier than was available through [facility] and so saw Dr. Jigar Bo in [place] who the patient had seen for neck surgery many years ago, has similar background to [facility] but is better set up at his hospital ( [facility]) to perform the necessary anterior component of the mult-stages and multi-approach surgery required for this patient. Dr. Bo called me shortly after that evaluation and indicated that he would be able to provide Radha Wolff's spine care but was very concerned about his appearance and 24 hour history of nausea and emesis (which I was unaware of until that call). Dr. Bo recommended immediate admission through the ER to [facility] for medical management however the patient wished to go to [place] where all of his most recent treatments have been provided. He was evidently somewhat disoriented even at the time of office evaluation on (04/11/2017) per Dr. Bo's report. He had not previously had any central symptoms or findings on my office evaluations or by report from the patient, his family or other physicians. By the time he arrived at the [place] ER he was evidently more disoriented and confused. It should be noted that the only other time that I have seen him with central issues like this was the day after his 2016 surgery. He was confused and combative and pulled out several postoperative lines but cleared over 24 hours. No specific etiology was identified but adverse reaction to Dilaudid was suspected and he tolerated Oxycodone better without further central, cognitive or behavioral issues at that time. He was admitted and treated for acute renal failure and dehydration resulting in significant and rapid but not yet complete correction of his lab abnormalities. ESR was low at 2. CRP was elevated at 15. confusion, lethargy and frequent falls. On admission he was afebrile with an O2 sat of 88% on room air. Laboratory data revealed a white blood cell count of 18 ,000, with 85 segs and 9 bands, H&H 17 and 50, ESR 2, BUN/creatinine 32 and 2.9, lactic acid 2.5, high sensitive CRP greater than 15, with normal liver enzymes. Chest x-ray was negative. CT of the head was negative for any acute process. CT of the abdomen and pelvis revealed no change in the appearance of the hardware failure at L5, with bilateral nephrolithiasis, marked gastric distention and mild ill-defined patchy opacities in the lung bases. A lumbar puncture was performed and revealed 1 white blood cell and an elevated protein of 70.. He was given Vancomycin, Ceftriaxone and Ceftazidime. He has remained afebrile overnight. He remains confused and is unable to provide an accurate history.
[2017-04-13 14:05] LABS: ABSOLUTE BASOPHIL COUNT 0 /CUMM (0.0-0.2); ABSOLUTE EOSINOPHIL COUNT 0 /CUMM (0.0-0.7); ABSOLUTE GRANULOCYTE CT 4.4 /CUMM (1.4-6.5); ABSOLUTE LYMPH COUNT 0.5 /CUMM (1.2-3.4); ABSOLUTE MONOCYTE COUNT 0.3 /CUMM (0.10-0.60); BASOPHIL % 0.1 % (0.0-2.0); EOSINOPHIL % 0.3 % (0-5); GRANULOCYTE % 84.3 % (42.2-75.2); HEMATOCRIT 35.6 % (42-52); MEAN CORPUSCULAR HGB 28.4 PG (27.0-31.0); MEAN CORPUSCULAR HGB CONC 32.8 G/DL (33.0-37.0); MEAN CORPUSCULAR VOLUME 86.8 FL (80.0-94.0); MEAN PLATELET VOLUME 10.1 FL (7.4-10.4); PLATELET COUNT 162 /CUMM (130-400); RBC DISTRIBUTION WIDTH 15.6 % (11.5-14.5); WHITE BLOOD CELL COUNT 5.2 /CUMM (4.8-10.8)
--- NOTE | 2017-04-13 14:14 | PN- Infect Dx ---
Subjective Subjective: No fever. Comfortable; when asked asked stating back pain; agitated; requiring Long vest/sitter. Review of Systems Comments: 12 points reviewed as noted, otherwise negative. Objective Last 24 Hrs of Vital Signs/I&O Vital Signs Date Time Temp Pulse Resp B/P B/P Pulse O2 O2 Flow FiO2 Mean Ox Delivery Rate 04/13 0626 98.7 87 20 116/76 93 04/12 1718 98.1 90 18 122/62 95 Nasal 2.0L Cannula 04/12 1600 Nasal 2.0L Cannula Intake & Output 04/13 1600 04/13 0800 04/13 0000 Intake Total 1000 245 Output Total 100 400 350 Balance -100 600 -105 Intake, IV 750 125 Intake, Oral 250 120 Output, Urine 100 400 350 Physical Exam Other Physical Findings: Afebrile. He is awake and alert, confused, but in no acute distress. Skin reveals no rash. HEENT negative. Neck is supple with no adenopathy. Lungs are clear. Heart regular rhythm with no murmur. Abdomen is soft, nontender with positive bowel sounds. Back no CVA tenderness. Extremities no cyanosis, clubbing or edema. Neuro is without focality. Results Last 24 Hours of Lab Results: Laboratory Tests 04/13 04/12 1325 2033 Chemistry Sodium (137 - 145 mmol/L) Pending 138 Potassium (3.5 - 5.1 mmol/L) Pending 3.7 Chloride (98 - 107 mmol/L) Pending 108 H Carbon Dioxide (22 - 30 mmol/L) Pending 21 L Anion Gap (5 - 16) Pending 9 BUN (9 - 20 mg/dL) Pending 24 H Creatinine (0.7 - 1.2 mg/dL) Pending 1.2 Estimated GFR (>60 ml/min) > 60 BUN/Creatinine Ratio (7 - 25 %) Pending 20.0 Hematology CBC w Diff Pending NO MAN DIFF REQ WBC (4.8 - 10.8 /CUMM) Pending 4.6 L RBC (4.70 - 6.10 /CUMM) Pending 4.28 L Hgb (14.0 - 18.0 G/DL) Pending 12.2 L Hct (42 - 52 %) Pending 37.4 L MCV (80.0 - 94.0 FL) Pending 87.3 MCH (27.0 - 31.0 PG) Pending 28.6 MCHC (33.0 - 37.0 G/DL) Pending 32.7 L RDW (11.5 - 14.5 %) Pending 15.4 H Plt Count (130 - 400 /CUMM) Pending 160 MPV (7.4 - 10.4 FL) Pending 10.0 Gran % (42.2 - 75.2 %) 78.5 H Lymphocytes % (20.5 - 51.1 %) 11.2 L Monocytes % (1.7 - 9.3 %) 6.0 Eosinophils % (0 - 5 %) 3.8 Basophils % (0.0 - 2.0 %) 0.5 Absolute Granulocytes (1.4 - 6.5 /CUMM) 3.6 Absolute Lymphocytes (1.2 - 3.4 /CUMM) 0.5 L Absolute Monocytes (0.10 - 0.60 /CUMM) 0.3 Absolute Eosinophils (0.0 - 0.7 /CUMM) 0.2 Absolute Basophils (0.0 - 0.2 /CUMM) 0 Last 24 Hours of Jesus Results: COMMENT: L5 BONE ASPIRATE BLOODY FLUID Procedure Result > GRAM STAIN Final 04/13/17-0736 WHITE BLOOD CELLS NONE OTHER NO ORGANISMS SEEN > TRUNK AREA OR CULTURE Preliminary 04/13/17-1003 NO GROWTH AFTER 1 DAY Assessment/Plan ID Impression: 66-year-old man with a history of low back pain, status post multiple spinal procedures, most recently 1-1/2 years prior to admission, at which time he underwent revision decompression and instrumented fusion L2 to L5, which was complicated by a durotomy, with recurrent back pain over the last several months , status post several steroid injections and treatment with morphine, with a CT of the lumbar spine 3 weeks prior to admission revealing findings consistent with hardware failure at the L5 level, status post a CT-guided bone biopsy at L4 -L5 11 days prior to admission, with no cultures submitted and with the pathology "negative for evidence of malignancy", admitted on April 11 because of confusion, lethargy and frequent falls, found to be afebrile with a leukocytosis and renal failure. The recent imaging revealing evidence of hardware failure has raised concern for infection, which could be secondary to his recent steroid injections or his previous surgery, and this will need to be ruled out. S/P open biopsy 04/12, OR cultures no growth to date (NGTD). He was, unfortunately, begun on antibiotics, which, hopefully, will not affect the OR cultures and he should be followed off antibiotics pending these results. His confusion is likely medication related, with no evidence for meningitis. His renal failure may be multifactorial and appears to be improving. He does not appear to have any evidence for pneumonia; therefore he can be followed off antibiotics pending OR cultures. His white blood cell count has drastically decreased, but, with increased bands, an underlying infection must be considerer. Suggestion: 1. F/U bone biopsy/cultures results; call if fever or hypotension 2. Further management of his renal failure per Medicine 3. Follow off antibiotics pending above 4. CBC/BMP/ESR in am.
[2017-04-13 15:08] VITALS: BP 118/64
--- NOTE | 2017-04-13 15:29 | PN- Housestaff ---
Gonzalo Goodson 04/13/17 1514: Subjective Follow-up For: Back pain Altered mental status Complaints: Back Pain Subjective: Reviewed the patient seated comfortably on the bed he reports to have slept well though volunteers back pain saying that he has experienced significant pain overnight. Patient is status post IR guided biopsy of vertebra. Overnight was noted to be agitated and combative Review of Systems Constitutional: Denies: chills, fever. Cardiovascular: Denies: chest pain, palpitations. Respiratory: Denies: cough, short of breath. Gastrointestinal: Denies: abdominal pain, nausea, vomiting. Genitourinary: Denies: no symptoms. Musculoskeletal: Reports: see HPI. Denies: back pain. Objective Last 24 Hrs of Vital Signs/I&O Vital Signs Date Time Temp Pulse Resp B/P B/P Pulse O2 O2 Flow FiO2 Mean Ox Delivery Rate 04/13 1508 98.3 76 18 118/64 96 04/13 0626 98.7 87 20 116/76 93 04/12 1718 98.1 90 18 122/62 95 Nasal 2.0L Cannula 04/12 1600 Nasal 2.0L Cannula Intake & Output 04/13 1600 04/13 0800 04/13 0000 Intake Total 1480 1000 245 Output Total 700 400 350 Balance 780 600 -105 Intake, IV 1000 750 125 Intake, Oral 480 250 120 Number 1 Bowel Movements Output, Urine 700 400 350 Physical Exam General Appearance: Alert, Oriented X3, Cooperative, No Acute Distress Skin: No Rashes Skin Temp/Moisture Exam: Warm/Dry Sepsis Skin Exam (color): Normal for Ethnicity HEENT: Atraumatic, Mucous Membr. moist/pink Neck: Supple, No JVD Cardiovascular: Regular Rate, Normal S1, Normal S2 Lungs: Clear to Auscultation, Normal Air Movement Abdomen: Normal Bowel Sounds, Soft, No Tenderness Neurological: Normal Speech Extremities: No Clubbing, No Cyanosis Vascular: Normal Pulses Current Medications: Current Medications Sig/Velvet Start time Last Medication Dose Route Stop Time Status Admin Acetaminophen 1,000 MG Q6P PRN 04/12 1415 AC N/A 1 UNIT IV Acetaminophen 650 MG Q6P PRN 04/12 0330 AC PO Acetaminophen 1,000 MG Q8P PRN 04/12 0330 AC 04/13 IV 1028 Dextrose/Sodium 1,000 ML .Q8H 04/12 0330 r 04/13 Chloride IV 04/13 1600 1321 Duloxetine HCl 30 MG BID 04/12 1000 AC 04/13 PO 1028 Fentanyl Citrate 0 .STK-MED ONE 04/12 1548 DC .ROUTE Flumazenil 0 .STK-MED ONE 04/12 1549 DC IV Heparin Sodium 5,000 UNIT Q8 04/12 0600 AC 04/13 (Porcine) SC 1327 Lidocaine 1 ML .STK-MED ONE 04/12 1707 DC ID 04/12 1708 Midazolam HCl 0 .STK-MED ONE 04/12 1549 DC .ROUTE Naloxone HCl 0 .STK-MED ONE 04/12 1549 DC .ROUTE Omeprazole 40 MG DAILY AC 04/12 0700 AC 04/13 PO 0531 Trimethobenzamide HCl 200 MG 4 TIMES/DAY PRN 04/12 0330 AC IM Zolpidem Tartrate 10 MG QPM 04/13 2200 AC PO Last 24 Hrs of Lab/Jesus Results Last 24 Hrs of Labs/Mics: Laboratory Tests 04/13/171324: Anion Gap 8, Estimated GFR > 60, BUN/Creatinine Ratio 22.9, CBC w Diff NO MAN DIFF REQ, RBC 4.10 L, MCV 86.8, MCH 28.4, MCHC 32.8 L, RDW 15.6 H, MPV 10.1, Gran % 84.3 H, Lymphocytes % 9.1 L, Monocytes % 6.2, Eosinophils % 0.3, Basophils % 0.1, Absolute Granulocytes 4.4, Absolute Lymphocytes 0.5 L, Absolute Monocytes 0.3, Absolute Eosinophils 0, Absolute Basophils 0 04/12/172032: Anion Gap 9, Estimated GFR > 60, BUN/Creatinine Ratio 20.0, CBC w Diff NO MAN DIFF REQ, RBC 4.28 L, MCV 87.3, MCH 28.6, MCHC 32.7 L, RDW 15.4 H, MPV 10.0, Gran % 78.5 H, Lymphocytes % 11.2 L, Monocytes % 6.0, Eosinophils % 3.8, Basophils % 0.5, Absolute Granulocytes 3.6, Absolute Lymphocytes 0.5 L, Absolute Monocytes 0.3, Absolute Eosinophils 0.2, Absolute Basophils 0 Microbiology 04/13 0010 URINE ROUT: Urine Culture - COLB 04/12 1647 TRUNK/O.R.: Culture & Sensitivity - RES 02/23 1648 TRUNK/O.R.: Gram Stain - RES 04/12 1644 TRUNK/O.R.: Culture & Sensitivity - RES 04/12 1644 TRUNK/O.R.: Gram Stain - RES 04/12 1637 TRUNK/O.R.: Culture & Sensitivity - RES 04/12 163 TRUNK/O.R.: Gram Stain - RES Assessment/Plan Assessment: 66 year old patient with a PMH significant for gastroparesis, migrains, GERD, chronic pain and a history of low back and neck surgeries, presented to [facility] with his for altered mental status. Patient has a history of multiple back surgeries and he follow-up with Dr. Mendosa, he had CT and MRI done in the past few months and he had IR guided spine biopsy one week ago in [facility] however when he came to the ED they found out that the biopsy was never sent for culture. The patient's noticed that 3 days prior to admission he started getting more confused and having twitches. Patient was found to have leukocytosis with left shift and bandemia, mild ill-defined patchy airspace opacities at the lung bases, bilateral nephrolithiasis. Patient received 1 dose of vancomycin and ceftriaxone in the ED, LP was done however it didn't show any signs of bacterial meningitis Back pain with history of multiple vertebral fusion surgeries Orthopedic consult appreciated seen by Isacc Mendosa MD The shunt had a IR guided biopsy continue to follow results. Patient is being followed off antibiotics pending culture results. Had ESR on admission was 2 however today ID is requesting repeat of ESR which will be done with a.m. labs. JULIUS Most likely due to poor oral intake Presented with a creatinine of 1.9 and was started on IV fluids gentle hydration Creatinine has decreased progressively and today is within normal range 0.7 Will stop IV fluids and continue to encourage oral intake DVT prophylaxis heparin 5000 every 8 CODE STATUS DNI/R Problem List: 1. Lumbar disc herniation with radiculopathy 2. Smoker Pain Ratin Pain Location: Back pain Pain Goal: Pain 4 or less Pain Plan: TYLENOL oral and IV Tomorrow's Labs & Rationales: DEP/CBC and ESR DVT/Prophylaxis: pharmacological Smith Pritchard MD 04/13/17 1804: Attending MD Review Statement Attending Statement Attending MD Statement: examined this patient, discuss w/resident/PA/BEER MERCHANT, agreed w/resident/PA/BEER MERCHANT, discussed with nursing Attending Assessment/Plan: 66 yo M with h/o GERD, gastroparesis, chronic pain on oxycodone (pain management Dr. Carlos at [place]), multiple lumbar surgeries is here for evaluation of altered mental status, malaise, nausea and poor PO intake. Patient follows with Dr. Mendosa and had a L4-5 bone biopsy last week by IR, pathology negative for malignancy. Patient's altered mental status is resolving. Denies any specific complaints. Alert oriented 3. And had a rough night last night where he was disoriented, agitated and combative Assessment and plan: 1. Possible Sepsis 2. Altered mental status - disorientation 3. Acute hypoxic respiratory failure 4. JULIUS 5. Lactic acidosis 6. Chronic back pain - Will watch off of antibiotics appreciate infectious recommendations - Holding home medications which may cause altered mental status. However patient mentioned that he did not get a good night sleep. Will restart home Ambien as mental status is improving and returning back to baseline . - Will benefit from PRN Seroquel at night DVT ppx Hep SC. Full code.
--- NOTE | 2017-04-13 19:36 | Event Note ---
Event Note Event Note: S: Patient very agitated and combative, violent. Not answering questions. B:66 year old patient with a PMH significant for gastroparesis, migrains, GERD, chronic pain and a history of low back and neck surgeries, presented to [facility] with his for altered mental status. A/R: [place], 4x soft restraint, haldol 1mg IM x1. Re-evaluate in 30 minutes. Likely sundowning.
[2017-04-14 06:50] VITALS: BP 140/84
--- NOTE | 2017-04-14 08:13 | PN- Housestaff ---
Josee Tran 04/14/17 0812: Subjective Follow-up For: AMS JULIUS Back pain Subjective: I have seen and examined the patient. Patient reports that he doesn't know where he is or what the time is however he remembers his name, his date of , kids name and their occupation. Patient only chief complaints is severe back pain which is making agitated as well and he has a sitter with occasional AMS. Review of Systems Constitutional: Reports: see HPI. Objective Last 24 Hrs of Vital Signs/I&O Vital Signs Date Time Temp Pulse Resp B/P B/P Pulse O2 O2 Flow FiO2 Mean Ox Delivery Rate 04/14 0650 98.8 80 20 140/84 97 04/13 1508 98.3 76 18 118/64 96 Intake & Output 04/14 1600 04/14 0800 04/14 0000 Intake Total 500 1175 Output Total 300 800 Balance 200 375 Intake, IV 875 Intake, Oral 500 300 Number 1 1 Bowel Movements Output, Urine 300 800 Physical Exam General Appearance: Alert, Cooperative, Moderate Distress Other Physical Findings: Cardiovascular: Regular Rate, Normal S1, Normal S2 Lungs: Clear to Auscultation, Normal Air Movement Abdomen: Normal Bowel Sounds, Soft, No Tenderness Neurological: Normal Speech Extremities: No Clubbing, No Cyanosis Vascular: Normal Pulses Current Medications: Current Medications Sig/Velvet Start time Last Medication Dose Route Stop Time Status Admin Acetaminophen 1,000 MG .STK-MED ONE 04/13 1007 DC IV 04/13 1008 Acetaminophen 1,000 MG Q6P PRN 04/12 1415 DC N/A 1 UNIT IV Acetaminophen 650 MG Q6P PRN 04/12 0330 DC 04/14 PO 0232 Acetaminophen 1,000 MG Q8P PRN 04/12 0330 AC 04/14 IV 0601 Dextrose/Sodium 1,000 ML .Q8H 04/12 0330 DC 04/13 Chloride IV 04/13 1600 1321 Duloxetine HCl 30 MG BID 04/12 1000 AC 04/14 PO 0913 Haloperidol 1 MG ONCE ONE 04/13 1930 DC 04/13 IM 04/13 193 1930 Heparin Sodium 5,000 UNIT Q8 04/12 0600 AC 04/14 (Porcine) SC 0230 Ketorolac 15 MG ONCE ONE 04/14 0900 DC Tromethamine IV 04/14 0901 Lidocaine 1 PAT DAILY 04/14 1000 AC EXT Omeprazole 40 MG DAILY AC 04/12 0700 AC 04/14 PO 0601 Potassium Chloride 60 MEQ ONCE ONE 04/14 0900 DC 04/14 PO 04/14 0901 0913 Trimethobenzamide HCl 200 MG 4 TIMES/DAY PRN 04/12 0330 AC IM Zolpidem Tartrate 10 MG ONCE ONE 04/14 0230 DC 04/14 PO 04/14 0231 0232 Zolpidem Tartrate 10 MG QPM 04/13 2200 DC PO Last 24 Hrs of Lab/Jesus Results Last 24 Hrs of Labs/Mics: Laboratory Tests 04/14/17 0720: Anion Gap 9, Estimated GFR > 60, BUN/Creatinine Ratio 20.0, Creatine Kinase 273 H, CBC w Diff NO MAN DIFF REQ, RBC 4.12 L, MCV 86.9, MCH 29.5, MCHC 33.9, RDW 15.5 H, MPV 10.3, Gran % 86.0 H, Lymphocytes % 7.2 L, Monocytes % 6.4, Eosinophils % 0.3, Basophils % 0.1, Absolute Granulocytes 6.5, Absolute Lymphocytes 0.5 L, Absolute Monocytes 0.5, Absolute Eosinophils 0, Absolute Basophils 0, ESR [facility] Pending 04/13/17 1325: Anion Gap 8, Estimated GFR > 60, BUN/Creatinine Ratio 22.9, CBC w Diff NO MAN DIFF REQ, RBC 4.10 L, MCV 86.8, MCH 28.4, MCHC 32.8 L, RDW 15.6 H, MPV 10.1, Gran % 84.3 H, Lymphocytes % 9.1 L, Monocytes % 6.2, Eosinophils % 0.3, Basophils % 0.1, Absolute Granulocytes 4.4, Absolute Lymphocytes 0.5 L, Absolute Monocytes 0.3, Absolute Eosinophils 0, Absolute Basophils 0 Assessment/Plan Assessment: 66 year old patient with a PMH significant for gastroparesis, migrains, GERD, chronic pain and a history of low back and neck surgeries, presented to [facility] ED with his for altered mental status. Patient has a history of multiple back surgeries and he follow-up with Dr. Mendosa, he had CT and MRI done in the past few months and he had IR guided spine biopsy one week ago in [facility] however when he came to the ED they found out that the biopsy was never sent for culture. The patient's noticed that 3 days prior to admission he started getting more confused and having twitches. Patient was found to have leukocytosis with left shift and bandemia, mild ill-defined patchy airspace opacities at the lung bases, bilateral nephrolithiasis. Patient received 1 dose of vancomycin and ceftriaxone in the ED, LP was done however it didn't show any signs of bacterial meningitis AMS - we will dc ambien -no benzo/ limited narcotics Back pain with history of multiple vertebral fusion surgeries -Orthopedic consult appreciated seen by Isacc Mendosa MD -IR guided biopsy continue to follow results. -Patient is being followed off antibiotics pending culture results. -ESR today pending -we will follow ID notes -we will give one time toradol and lidoderm patch JULIUS Most likely due to poor oral intake Presented with a creatinine of 1.9 and was started on IV fluids gentle hydration which is resolved -resolved DVT prophylaxis heparin 5000 every 8 CODE STATUS DNI/R Problem List: 1. Spinal instability, lumbar Pain Ratin Pain Location: back Pain Goal: Pain 7 or less Pain Plan: toradol lidoderm patach Tomorrow's Labs & Rationales: cbc bep Francheska DOUGLAS,Smith 04/14/17 1556: Attending MD Review Statement Attending Statement Attending MD Statement: examined this patient, discuss w/resident/PA/LOGISTICS LEAD, agreed w/resident/PA/LOGISTICS LEAD, discussed with nursing Attending Assessment/Plan: 66 yo M with h/o GERD, gastroparesis, chronic pain on oxycodone (pain management Dr. Carlos at [facility]), multiple lumbar surgeries is here for evaluation of altered mental status, malaise, nausea and poor PO intake. Patient follows with Dr. Mendosa and had a L4-5 bone biopsy last week by IR, pathology negative for malignancy. Patient's altered mental status is resolving. Denies any specific complaints. Alert oriented 3. Assessment and plan: 1. Possible Sepsis 2. Altered mental status - disorientation 3. Acute hypoxic respiratory failure 4. JULIUS 5. Lactic acidosis 6. Acute on chronic back pain - Orthopedics on board - Will watch off of antibiotics appreciate infectious recommendations - Holding home medications which may cause altered mental status. However patient mentioned that he did not get a good night sleep. We restarted home Ambien and gave him one dose. - Will benefit from PRN Seroquel at night DVT ppx Hep SC. Full code.
[2017-04-14 08:23] LABS: ABSOLUTE BASOPHIL COUNT 0 /CUMM (0.0-0.2); ABSOLUTE EOSINOPHIL COUNT 0 /CUMM (0.0-0.7); ABSOLUTE GRANULOCYTE CT 6.5 /CUMM (1.4-6.5); ABSOLUTE LYMPH COUNT 0.5 /CUMM (1.2-3.4); ABSOLUTE MONOCYTE COUNT 0.5 /CUMM (0.10-0.60); BASOPHIL % 0.1 % (0.0-2.0); EOSINOPHIL % 0.3 % (0-5); HEMATOCRIT 35.8 % (42-52); MEAN CORPUSCULAR HGB 29.5 PG (27.0-31.0); MEAN CORPUSCULAR HGB CONC 33.9 G/DL (33.0-37.0); MEAN CORPUSCULAR VOLUME 86.9 FL (80.0-94.0); MEAN PLATELET VOLUME 10.3 FL (7.4-10.4); PLATELET COUNT 167 /CUMM (130-400); RBC DISTRIBUTION WIDTH 15.5 % (11.5-14.5); RED BLOOD CELL CT 4.12 /CUMM (4.70-6.10); WHITE BLOOD CELL COUNT 7.6 /CUMM (4.8-10.8)
--- NOTE | 2017-04-14 10:32 | PN- Orthopedic ---
Surgical Brief Attending Note Brief Attending Note: Patient seen in consultation followup on 04/13/2017 @ 09:30 AM: Confused. Only partially oriented. c/o LBP. He has L4-L5 lytic and handware loosening process which [facility] does not, in my opinion, have a system and team currently set up to address from the anterior approach. He has already been referred to [facility] for transfer of care but has not yet seen them. In very appropriately seeking a second opinion he referred himself to Dr. Bo in [place] who's hospital is better equipped, prepared and experienced to perform the anterior spinal approach which would be best for his care. When he required admission for medical decompensation however he elected to come to [facility] for his care as he is most comfortable here and has had most of his recent care here. He understood prior to admission that this might necessitate transfer of care to a tertiary care institution if for any reason he required definitive, stabilizing spinal surgery prior to discharge for his original medical presentation. No NV change. 3+-4 L EHL/AT. beck tender but not severe. Pain with motion but not severe. Need Cx results from BCx, LP Cx, Bx Cx to determine if infection is the etiology of his vertebral lysis (and therefore likely his mental status changes). If Cx negative then will defer all workup and decisions to medicine, ID, neurology, etc. At some point, if Cx is negative, mental status does not clear and no other explanation for mental status change can be found, cessatio of ABX Rx may need to be considered followed by repeat Bx for Cx. In that case he will need to be fully stabilized and completely cleared from a medical standpoint, back to his normal cognitive and behavioral mental status for several weeks without relapse, pain controlled adequately to return to the basic walker ambulatory and home functional level that he was at a few weeks ago , discharged home and stable as an outpatient long enough to make appropriate arrangements at [facility], [facility] or any other institution that he chooses to select which is equipped to optimally care for his spinal condition on an expedited elective basis. If Cx is positive and his mental status clears then we can discuss some modification and acceleration of the above plan depending on sensitivites and response, pain control and other factors. Urgent transfer of care would likely be my recommendation at that point and transfer would be to [facility] (higher level of care capacity) or, if the patient elects and Dr. Bo accepts transfer, to similar level of care at [facility]. If Cx is positive and mental status does not clear but patient is medically stable then urgent-emergent transfer to [facility] would likely be the best option. If he becomes medically or neurologically unstable (progressive neurologic deficit) and his spine is suspected as the source of sepsis then I will plan to perform either a posterior only procedure or arrange for anterior access surgeon assistance on a consultation privilege basis to address the emergent aspect of his surgical care understanding that subsequent transfer may be required to finalize his surgical treatment and stabilization. The last time he was this disoriented was after surgery in 2016. This was presumed to be due to adverse, non-allergic reaction to Dilaudid and seemed to clear within 24 hours or less with cessation of narcotics and eventual change to Oxycodone. I do not recall him having prolonged (> 24 hours) disorientation or a waxing and waning course over several days the way he has been during this admission. He has not had MS for several days. He has a baseline, albeit well controlled, psychiatric history. I have known the patient for several years now and his normal baseline is quite high functioning. This is a gross change for him. His family may have additional information about any prior episodes but I am only aware of the postop episode noted above. At this point, both Neurology and Psychiatry evaluations are warranted if he does not rapidly clear.
--- NOTE | 2017-04-14 11:21 | PN- Orthopedic ---
Surgical Brief Attending Note Brief Attending Note: Patient seen in consultation followup on 04/14/2017 @ 09:30 AM: Confused. Only partially oriented. c/o LBP. No NV change. 3+-4 L EHL/AT. No other changes. Cxs pending. SOAP otherwise unchanged. See comprehensive orthopaedic consultation notes from 04/12/2017 and 04/13/2017. See medical H&P and interval progress notes for other nonspine information regarding his original presenting medical conditions.
--- NOTE | 2017-04-14 13:14 | PN- Infect Dx ---
Subjective Subjective: No fever. Confused/agitated at times. Review of Systems Comments: 12 points reviewed as noted, otherwise negative. Objective Last 24 Hrs of Vital Signs/I&O Vital Signs Date Time Temp Pulse Resp B/P B/P Pulse O2 O2 Flow FiO2 Mean Ox Delivery Rate 04/14 0650 98.8 80 20 140/84 97 04/13 1508 98.3 76 18 118/64 96 Intake & Output 04/14 1600 04/14 0800 04/14 0000 Intake Total 500 1175 Output Total 300 800 Balance 200 375 Intake, IV 875 Intake, Oral 500 300 Number 1 1 Bowel Movements Output, Urine 300 800 Physical Exam Other Physical Findings: Afebrile. He is awake and alert, confused, but in no acute distress. Skin reveals no rash. HEENT negative. Neck is supple with no adenopathy. Lungs are clear. Heart regular rhythm with no murmur. Abdomen is soft, nontender with positive bowel sounds. Back no CVA tenderness. Extremities no cyanosis, clubbing or edema. Neuro is without focality. Results Last 24 Hours of Lab Results: Laboratory Tests 04/14 04/13 0720 1325 Chemistry Sodium (137 - 145 mmol/L) 141 141 Potassium (3.5 - 5.1 mmol/L) 3.3 L 3.9 Chloride (98 - 107 mmol/L) 112 H 110 H Carbon Dioxide (22 - 30 mmol/L) 20 L 23 Anion Gap (5 - 16) 9 8 BUN (9 - 20 mg/dL) 12 16 Creatinine (0.7 - 1.2 mg/dL) 0.6 L 0.7 Estimated GFR (>60 ml/min) > 60 > 60 BUN/Creatinine Ratio (7 - 25 %) 20.0 22.9 Creatine Kinase (55 - 170 U/L) 273 H Hematology CBC w Diff NO MAN DIFF REQ NO MAN DIFF REQ WBC (4.8 - 10.8 /CUMM) 7.6 5.2 RBC (4.70 - 6.10 /CUMM) 4.12 L 4.10 L Hgb (14.0 - 18.0 G/DL) 12.1 L 11.7 L Hct (42 - 52 %) 35.8 L 35.6 L MCV (80.0 - 94.0 FL) 86.9 86.8 MCH (27.0 - 31.0 PG) 29.5 28.4 MCHC (33.0 - 37.0 G/DL) 33.9 32.8 L RDW (11.5 - 14.5 %) 15.5 H 15.6 H Plt Count (130 - 400 /CUMM) 167 162 MPV (7.4 - 10.4 FL) 10.3 10.1 Gran % (42.2 - 75.2 %) 86.0 H 84.3 H Lymphocytes % (20.5 - 51.1 %) 7.2 L 9.1 L Monocytes % (1.7 - 9.3 %) 6.4 6.2 Eosinophils % (0 - 5 %) 0.3 0.3 Basophils % (0.0 - 2.0 %) 0.1 0.1 Absolute Granulocytes (1.4 - 6.5 /CUMM) 6.5 4.4 Absolute Lymphocytes (1.2 - 3.4 /CUMM) 0.5 L 0.5 L Absolute Monocytes (0.10 - 0.60 /CUMM) 0.5 0.3 Absolute Eosinophils (0.0 - 0.7 /CUMM) 0 0 Absolute Basophils (0.0 - 0.2 /CUMM) 0 0 ESR Westergren (0 - 10 MM) 15 H Last 24 Hours of Jesus Results: SPEC #: [id number] KATHI: 04/12/17 STATUS: RES RECD: 04/12/[address]: Sarthak DOUGLAS,Angelica SOURCE: TRUNK/O.R. ENTR: 04/12/17-[address]: Patria DOUGLAS,Santiago Hough [facility], [facility] ORDERED: TRUNK OR CULT COMMENT: L4 BONE ASPIRATE BLOODY FLUID Procedure Result > GRAM STAIN Final 04/13/17-0740 WHITE BLOOD CELLS RARE OTHER NO ORGANISMS SEEN > TRUNK AREA OR CULTURE Preliminary 04/14/17-1001 NO GROWTH AFTER 2 DAYS Recent Imaging Studies: SERVICE DATE: 04/12/17- EXAM TYPE: CAT - CT BONE BIOPSY CLINICAL HISTORY: This patient is a 66 years old male with presumed osteomyelitis at the L4-L5 levels, who presents to Interventional Radiology for CT-guided biopsy of the L4 and L5 vertebral bodies as well as disc aspiration at the L4-L5 level. Culture only as requested by Dr. Mendosa. Due to the patient's usage of Celebrex of unknown duration, needle aspiration will be performed. If a bone drill is required, the patient will need to come off of nonsteroidals for 48 hours. There is a slightly elevated bleeding risk due to the presence of nonsteroidals at the current time, however this considered very minimal and the potential benefit of obtaining a positive culture far outweighs this low risk. These issues were discussed with Dr. Mendosa and the patient's , Marly, who are in agreement to proceed and understand the risks involved. Considering the lytic areas of the bone and around the screws, a needle should be able to be navigated into the areas of concern without the need of a bone drill. PROCEDURES: 1. Limited preprocedure CT of the lumbar spine. 2. Aspiration of the L4 vertebral body, L4-L5 disc space and L5 vertebral body along a previous screw tract. PHYSICIANS: Dr. Jacquelyn Cast (attending) MONITORING: The procedure was performed with continuous blood pressure, pulse oximetry as well as heart rate monitoring was performed by an independent registered nurse. MEDICATIONS: 1. Versed 0 mg and fentanyl 100 mcg IV were administered. 2. Lidocaine 1%, 8 mL, SQ. COMPLICATIONS: None ESTIMATED BLOOD LOSS: <5 mL SPECIMENS: Fine-needle aspirates at L4, L4-L5 disc space and L5 IMPLANT: None CONTRAST: None TOTAL DLP: 321.31 mGy-cm SITE MARKING: As part of the preprocedure verification policy, a site marking procedure was initiated. Due to the nature the procedure, the insertion site could not be predetermined thus invoking the policy of exemption to site laterality and marking. Insertion site marking was performed in the procedure room in conjunction with imaging confirmation. PROCEDURE NOTE: Informed consent was obtained from the patient's , Marly, prior to the procedure. During this process, the procedure and potential alternatives were explained along with the intended outcome and benefits. The risks of the procedure, including the possibility of an unsuccessful procedure, as well as the risk of not doing the procedure, were discussed. The patient's was given the opportunity to ask questions regarding the procedure and appeared competent to make decisions. A signed consent form documenting this discussion was placed in the medical record. A time-out procedure was performed. The patient was placed prone on the CT table. A limited CT of the lumbar spine was performed to localize the L4-L5 level and to choose appropriate needle entry and trajectory. The lower back was prepped and draped in usual sterile fashion. All elements of maximal sterile barrier technique followed including use of cap, mask, sterile gown, sterile gloves, a sterile full body drape and hand hygiene. Also followed skin preparation with 2% chlorhexidine for cutaneous antisepsis, and sterile ultrasound preparation with sterile gel and probe cover when applicable. The skin and subcutaneous tissues were anesthetized with lidocaine. Under CT-guidance, a 20 g 10 cm Pa needle with trocar was advanced to the L4 inferior endplate where multiple small lytic areas were seen clustered. Unfortunately this was covered by sclerotic bone and I was unable to break through this with the needle. Aspiration was performed and indeed blood-tinged fluid was able to be aspirated and placed in a sterile cup by saline washing the needle. Under CT guidance a 20-gauge 10 cm Pa needle was trocar was advanced into the L4-L5 disc space. Slightly cloudy orange fluid was aspirated, approximately 0.5 mL, and was placed in a sterile cup. Under CT guidance a 20-gauge 10 cm Pa needle with trocar was advanced into the L5 screw tract from a prior surgery. Likely fluid was aspirated, approximately 0.5 mL, and was placed in a sterile cup. Samples were sent for culture, which I personally confirmed at the end of the procedure. The patient tolerated the procedure well. FINDINGS: Lytic regions in the L4 and L5 inferior and superior endplates, respectively. Gas and lytic regions within the L4-L5 disc space. All 3 areas successfully aspirated. At L4, the fluid was blood-tinged, at the disc space it was orange-colored and slightly cloudy and at the L5 vertebral body the fluid was again blood-tinged. IMPRESSION: Successful CT-guided aspiration of the L4 vertebral body, L5 vertebral body and L4-L5 disc interspace. PLAN: The patient was stable after the procedure and was transferred back to his inpatient hospital room. DICTATED BY: Jacquelyn Cast MD DATE/TIME DICTATED:04/12/171712 SECOND MATE:ALEKSANDER DATE/TIME TRANSCRIBED:04/12/171712 CONFIDENTIAL, DO NOT COPY WITHOUT APPROPRIATE AUTHORIZATION. Assessment/Plan ID Impression: 66-year-old man with a history of low back pain, status post multiple spinal procedures, most recently 1-1/2 years prior to admission, at which time he underwent revision decompression and instrumented fusion L2 to L5, which was complicated by a durotomy, with recurrent back pain over the last several months , status post several steroid injections and treatment with morphine, with a CT of the lumbar spine 3 weeks prior to admission revealing findings consistent with hardware failure at the L5 level, status post a CT-guided bone biopsy at L4 -L5 11 days prior to admission, with no cultures submitted and with the pathology "negative for evidence of malignancy", admitted on April 11 because of confusion, lethargy and frequent falls, found to be afebrile with a leukocytosis and renal failure. The recent imaging revealing evidence of hardware failure has raised concern for infection, which could be secondary to his recent steroid injections or his previous surgery, and this will need to be ruled out. S/P open biopsy 04/12, OR cultures no growth to date (NGTD at 2 days). He was, unfortunately, begun on antibiotics, which, hopefully, will not affect the OR cultures and he should be followed off antibiotics pending these results. His confusion possibly medication related; pain medication seeking behavior. Of note denies drinking ETOH. Leukocytosis/resolved Suggestion: 1. F/U bone biopsy/cultures results; call if fever or hypotension 2. Trend CBC, BMP 3. Continue to follow off antibiotics pending above
[2017-04-14 15:19] VITALS: BP 132/68
[2017-04-14 21:51] VITALS: BP 142/88
[2017-04-15 06:49] VITALS: BP 160/98
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
[2017-04-15 08:58] LABS: ABSOLUTE BASOPHIL COUNT 0 /CUMM (0.0-0.2); ABSOLUTE EOSINOPHIL COUNT 0 /CUMM (0.0-0.7); ABSOLUTE GRANULOCYTE CT 6.7 /CUMM (1.4-6.5); ABSOLUTE LYMPH COUNT 0.7 /CUMM (1.2-3.4); ABSOLUTE MONOCYTE COUNT 0.7 /CUMM (0.10-0.60); BASOPHIL % 0.1 % (0.0-2.0); EOSINOPHIL % 0.2 % (0-5); GRANULOCYTE % 82.8 % (42.2-75.2); HEMATOCRIT 40.4 % (42-52); MEAN CORPUSCULAR HGB 29.1 PG (27.0-31.0); MEAN CORPUSCULAR HGB CONC 33.4 G/DL (33.0-37.0); MEAN CORPUSCULAR VOLUME 87.2 FL (80.0-94.0); MEAN PLATELET VOLUME 10.8 FL (7.4-10.4); PLATELET COUNT 201 /CUMM (130-400); RBC DISTRIBUTION WIDTH 14.9 % (11.5-14.5); RED BLOOD CELL CT 4.63 /CUMM (4.70-6.10); WHITE BLOOD CELL COUNT 8.1 /CUMM (4.8-10.8)
--- NOTE | 2017-04-15 13:35 | PN- Att Addend ---
Attending Addendum Attending Brief Note Patient seen and examined, Slightly confused but was able to answer most of my questions appropriately. he is c/o excruciating back pain. Vital Signs Date Time Temp Pulse Resp B/P B/P Pulse O2 O2 Flow FiO2 Mean Ox Delivery Rate 04/15 0910 68 160/89 04/15 0649 97.8 68 20 160/98 100 04/14 2151 98.8 90 18 142/88 96 Room Air 04/14 1519 98.1 77 16 132/68 98 Room Air on exam; awake, slightly confused nad. cv; s1,s2, rrr resp; clear abd; soft, nt, bs+ ext; no edema Laboratory Tests 04/15 618 Chemistry Sodium (137 - 145 mmol/L) 141 Potassium (3.5 - 5.1 mmol/L) 3.6 Chloride (98 - 107 mmol/L) 106 Carbon Dioxide (22 - 30 mmol/L) 21 L Anion Gap (5 - 16) 14 BUN (9 - 20 mg/dL) 12 Creatinine (0.7 - 1.2 mg/dL) 0.6 L Estimated GFR (>60 ml/min) > 60 BUN/Creatinine Ratio (7 - 25 %) 20.0 Hematology CBC w Diff NO MAN DIFF REQ WBC (4.8 - 10.8 /CUMM) 8.1 RBC (4.70 - 6.10 /CUMM) 4.63 L Hgb (14.0 - 18.0 G/DL) 13.5 L Hct (42 - 52 %) 40.4 L MCV (80.0 - 94.0 FL) 87.2 MCH (27.0 - 31.0 PG) 29.1 MCHC (33.0 - 37.0 G/DL) 33.4 RDW (11.5 - 14.5 %) 14.9 H Plt Count (130 - 400 /CUMM) 201 MPV (7.4 - 10.4 FL) 10.8 H Gran % (42.2 - 75.2 %) 82.8 H Lymphocytes % (20.5 - 51.1 %) 8.4 L Monocytes % (1.7 - 9.3 %) 8.5 Eosinophils % (0 - 5 %) 0.2 Basophils % (0.0 - 2.0 %) 0.1 Absolute Granulocytes (1.4 - 6.5 /CUMM) 6.7 H Absolute Lymphocytes (1.2 - 3.4 /CUMM) 0.7 L Absolute Monocytes (0.10 - 0.60 /CUMM) 0.7 H Absolute Eosinophils (0.0 - 0.7 /CUMM) 0 Absolute Basophils (0.0 - 0.2 /CUMM) 0 A/P; 66 y/o M with pmh sig for GERD, gastroparesis, chronic pain on oxycodone ( pain management Dr. Carlos at [place]), multiple lumbar surgeries is here for evaluation of altered mental status, malaise, nausea and poor PO intake. Patient follows with Dr. Mendosa and had a L4-5 bone biopsy last week by IR, pathology negative for malignancy but no culture sent. Patient also had acute renal failure. Creatinine back to normal. Patient underwent bone biopsy on April 12. So far culture results are negative. Patient has been watched off of antibiotics. He still remains somewhat confused. Will obtain LS spine MRI. We'll try to avoid narcotics if possible. We'll try to avoid benzos. Psych and neuro consults will be obtained. If patient remains in excruciating pain despite getting Toradol, Lyrica and Tylenol then we might have to give him low-dose morphine because that seemed to help. Will encourage ambulation. We'll try to reorient the patient and he should be getting out of bed to chair. DVt px; hep sq.
[2017-04-15 15:16] VITALS: BP 152/96
--- NOTE | 2017-04-15 16:46 | MRI REPORT ---
EXAMINATION: MR LUMBAR SPINE WITHOUT AND WITH CONTRAST CLINICAL INFORMATION: Severe back pain. Hardware failure. COMPARISON: CT scan of abdomen and pelvis 04/11/2017. TECHNIQUE: Multiplanar MR imaging of the lumbar spine was performed without and with the intravenous administration of gadolinium contrast. A total of 7 mL Gadavist was utilized for this examination. No adverse contrast reaction was reported. FINDINGS: There are chronic changes of a spinal fusion with a hardware construct composed of transpedicular screws extending from L3 to L5. There is nonspecific bone marrow edema involving the L5 vertebral body and the anterior upper corner of the S1 vertebral body. There is spinal scoliosis with a rightward convex curvature centered at L3-L4. Right lateral subluxation of L4 on L5. There is grade 1 anterolisthesis of L5 on S1 related to bilateral L5 pars interarticularis defects. Slight grade 1 retrolisthesis of L2 on L3. There is loss of intervertebral disc height at multiple levels related to disc degeneration. The tip of the conus medullaris is located at the level of L1. No mass effect on the conus. Visualized distal cord signal intensity is normal. At L1-L2 there is a slight annular bulge. No canal stenosis. No foraminal nerve root compression. At L2-L3 there is a slight diffuse annular bulge. No canal stenosis. Partial effacement of perineural fat without overt compression of the foraminal segments of the L2 nerve roots. At L3-L4 there chronic changes of a decompressive laminectomy. No canal stenosis. The foraminal segments of the L3 nerve root cannot be adequately assessments examination due to the extent of artifact related to metallic hardware. At L4-L5 there is a diffuse annular bulge. No canal stenosis. Although the foraminal segments of the L4 nerve roots are not well assessed on this examination there is at least moderate compression of the foraminal segment of the left L4 nerve root. At L5-S1 there is a diffuse annular bulge. No canal stenosis. Abutment of the foraminal segments of the L5 nerve roots are not well assessed on this examination there is at least moderate compression of the left L5 foraminal nerve root and mild compression of the right L5 foraminal nerve root. Limited visualization of the retroperitoneal structures reveals no abnormal finding. IMPRESSION: There is multilevel degenerative spondylosis of lumbar spine. Grade 1 anterolisthesis of L5 on S1 related to bilateral L5 pars interarticularis defects. Slight right lateral subluxation of L4 on L5. No canal stenosis. There are varying degrees of mass effect on the foraminal segments of the nerve roots as described above.
--- NOTE | 2017-04-15 17:03 | Cons- Psychiatry ---
Psychiatric Consult Date of Consult: 04/15/17 Reason for Consult: "AMS, delirium, chronic back pain on Lyrica/MSIR. Improving, no obvious trigger. " History of Present Illness: The patient was sent to the ED by Dr. Bo, head and neck specialist, on @ 1654, with a CC of rapid decline in mentation, lethargy, delirium and for workup for possibly infected spine after a spinal disc biopsy with Dr. Mendosa. PMH is significant for migraine, now on q 3 month Botox therapy; gastroparesis and unable to digest meat or fish, GERD and chronic back and neck surgery. He reports that last December 2016, he was hiking up a mountain with a friend, and fell, hitting his forehead, and injuring his back. He had been very active before this, running 5-6 marathons, and riding 100 miles to visit relatives in [place]. When that began to bother him, he began swimming 3 hours per day. 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 He is to his supportive spouse, Rossana, for 41 years. They have twin sons, one of whom is expecting the first grandchild, a girl in May. He had two brothers who of cystic fibrosis. No family psychiatric history as far as he knows. The patient reports difficulty with swallowing and has not eaten since he has been here. He needs to have water with his meals to help swallowing. He denies nausea. Allergies: Coded Allergies: Sulfa (Sulfonamide Antibiotics) (Severe, TONGUE SWELLING, RASH 04/11/17) Current Medications: Current Medications Sig/Velvet Start time Last Medication Dose Route Stop Time Status Admin Acetaminophen 1,000 MG .STK-MED ONE 04/15 0204 DC IV 04/15 0205 Acetaminophen 1,000 MG Q8P PRN 04/12 0330 AC 04/15 IV 0909 Clonidine 0.1 MG TID 04/15 1000 AC 04/15 PO 0910 Duloxetine HCl 30 MG BID 04/12 1000 AC 04/15 PO 0909 Heparin Sodium 5,000 UNIT Q8 04/12 0600 AC 04/15 (Porcine) SC 0643 Ketorolac 30 MG ONCE ONE 04/15 1015 DC Tromethamine IV 04/15 1016 Ketorolac 30 MG .STK-MED ONE 04/14 1912 DC Tromethamine IM 04/14 1913 Ketorolac 15 MG ONCE ONE 04/14 1829 DC 04/14 Tromethamine IV 04/14 Lidocaine 1 PAT DAILY 04/14 1000 AC 04/15 EXT 0910 Morphine Sulfate 10 MG Q12P PRN 04/15 1615 AC PO Omeprazole 40 MG DAILY AC 04/12 0700 AC 04/15 PO 0637 Pregabalin 75 MG BID 04/15 1153 AC PO Trimethobenzamide HCl 200 MG 4 TIMES/DAY PRN 04/12 0330 AC IM Past History Past Medical History Neurological: MIGRAINES EENT: NONE Cardiovascular: NONE Respiratory: NONE Gastrointestinal: GASTROPARESIS Hepatic: NONE Renal: NONE Musculoskeletal: fibromyalgia Psychiatric: NONE Endocrine: NONE Blood Disorders: NONE Cancer(s): NONE SCHOOL PSYCHOLOGY SPECIALIST/Reproductive: NONE Past Surgical History Surgical History: BACK SURGERIES INCLUDING LUMBAR FUSION STATUS POST UVULECTOMY STATUS POST RIGHT PRONATOR RELEASE Psychosocial History Strengths/Capabilities: Forward thinking, motivated for treatment, supportive family. Physical Limitations (Interventions): Chronic back pain, unsure of ambulatory status. Psychiatric Treatment History Psych Treatment Psychiatric Treatment No (Denies) Diagnosis: R/O Depressive d/o, NOS Risk Factors: male Substance Use/Abuse History Drug Use/Abuse Substances Used/Abused No (Denies) Substance Abuse Treatment Substance Abuse Treatment Past Substance Abuse [place] No Comments: The patient is allergic to alcohol. He has never smoked tobacco. Denies street drug use. Assessment/Plan Mental Status Orientation: Person, Place, Situation Affect: WNL Speech: WNL Neuro-vegetative: Appetite Decreased, Helpless Mental Status Exam: Alert, lying in his bed, calm, pleasant and conversational. He is oriented to person, place, day, month, year. He denies AH or VH and presents no alfred delusions. He is aware that he had a period of delirium, "I was a jerk." He denies helplessness, worthlessness and guilty feelings, and endorses helplessness. He denies suicidal or homicidal ideation. He reports sleep is 6-7 hours nightly, and he has been taking Ambien for years. He is up 1-2X/night to urinate. He takes about 2 hours to fall asleep, but awakens refreshed. His appetite is poor; he is not hungry. He reports gastroparesis and cannot digest meat or fish. He reports he likes sweets. The patient is allergic to alcohol and does not use street drugs. Lab Results: Laboratory Tests 04/15 0619 Chemistry Sodium (137 - 145 mmol/L) 141 Potassium (3.5 - 5.1 mmol/L) 3.6 Chloride (98 - 107 mmol/L) 106 Carbon Dioxide (22 - 30 mmol/L) 21 L Anion Gap (5 - 16) 14 BUN (9 - 20 mg/dL) 12 Creatinine (0.7 - 1.2 mg/dL) 0.6 L Estimated GFR (>60 ml/min) > 60 BUN/Creatinine Ratio (7 - 25 %) 20.0 Hematology CBC w Diff NO MAN DIFF REQ WBC (4.8 - 10.8 /CUMM) 8.1 RBC (4.70 - 6.10 /CUMM) 4.63 L Hgb (14.0 - 18.0 G/DL) 13.5 L Hct (42 - 52 %) 40.4 L MCV (80.0 - 94.0 FL) 87.2 MCH (27.0 - 31.0 PG) 29.1 MCHC (33.0 - 37.0 G/DL) 33.4 RDW (11.5 - 14.5 %) 14.9 H Plt Count (130 - 400 /CUMM) 201 MPV (7.4 - 10.4 FL) 10.8 H Gran % (42.2 - 75.2 %) 82.8 H Lymphocytes % (20.5 - 51.1 %) 8.4 L Monocytes % (1.7 - 9.3 %) 8.5 Eosinophils % (0 - 5 %) 0.2 Basophils % (0.0 - 2.0 %) 0.1 Absolute Granulocytes (1.4 - 6.5 /CUMM) 6.7 H Absolute Lymphocytes (1.2 - 3.4 /CUMM) 0.7 L Absolute Monocytes (0.10 - 0.60 /CUMM) 0.7 H Absolute Eosinophils (0.0 - 0.7 /CUMM) 0 Absolute Basophils (0.0 - 0.2 /CUMM) 0 Diffential Diagnosis: 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 infective etiology. Impression: The patient appeared to be recovering from his delirium and was alert and oriented today, presenting no delusions or delirium. The original triage note mentions a concern for a possible infective process from a spinal biopsy. The patient's mentation began to improve as the morphine and Lyrica were held, suggesting that the combination had contributed to his altered mental status. He had tolerated Lyrica for years, per his report. He is on duloxetine 30 mg PO 2X/day for neuropathy from his neurologist. Although the patient currently denies depression and anxiety, this may be protective for these disorders. I have left the patient a card with contact information for Fidel COBIAN, and asked him to call if he feels anxiety or depression are affecting his life. The patient promises to remain safe in the hospital and is not suicidal. Dr. Riojas reports that the patient has been overusing his morphine at home and has older pain medication, such as Belsomra, in the home. There are more morphine tablets missing than there should be. Provisional Treatment Plan: 1. No psychiatric interventions at this time. 2. Please complete a reversible dementia screen, including, but not limited to, chemistries, CBC, UA, Utox, thyroid function, Lyme, HIV, RPR/VDRL, head imaging, normal pressure hydrocephalus, vitamin B-12. Most of this has been done. 3. Please reduce the use of opiates, anticholinergics, JOCELYN analogues, benzodiazepines and other medications that can contribute to delirium and confusion. 4. Please avoid other delirium triggers as much as possible, including insomnia by avoiding nursing interventions between 10 PM and 6 AM. 5. We suggest that the patient have VNA at home at least for several weeks to teach the spouse how to manage his medication. Opiates and other medications should be in a lockbox. the nurse, initially, and later the spouse, may be able to leave the appropriate amount of medications for the day before leaving for work, taking the medications with her or locking them safely away. 6. Please advise the patient's pain cashier manager that he is having difficulty with the medications, as currently prescribed. Thank you for this consult.
--- NOTE | 2017-04-15 17:46 | PN- Infect Dx ---
Subjective Subjective: No fever; comfortable; improved MS. Review of Systems Comments: 12 points reviewed as noted, otherwise negative. Objective Last 24 Hrs of Vital Signs/I&O Vital Signs Date Time Temp Pulse Resp B/P B/P Pulse O2 O2 Flow FiO2 Mean Ox Delivery Rate 04/15 1652 67 152/96 04/15 1516 98.9 67 20 152/96 97 Room Air 04/15 0910 68 160/89 04/15 0649 97.8 68 20 160/98 100 04/14 2151 98.8 90 18 142/88 96 Room Air Intake & Output 04/15 1600 04/15 0800 04/15 0000 Intake Total 620 300 910 Output Total 700 Balance 620 -400 910 Intake, IV 100 110 Intake, Oral 620 200 800 Number 2 2 Bowel Movements Output, Urine 700 Physical Exam Other Physical Findings: Afebrile. He is awake and alert, confused, but in no acute distress. Skin reveals no rash. HEENT negative. Neck is supple with no adenopathy. Lungs are clear. Heart regular rhythm with no murmur. Abdomen is soft, nontender with positive bowel sounds. Back no CVA tenderness; dressing lower back in place. Extremities no cyanosis, clubbing or edema. Neuro is without focality. Results Last 24 Hours of Lab Results: Laboratory Tests 04/15 0619 Chemistry Sodium (137 - 145 mmol/L) 141 Potassium (3.5 - 5.1 mmol/L) 3.6 Chloride (98 - 107 mmol/L) 106 Carbon Dioxide (22 - 30 mmol/L) 21 L Anion Gap (5 - 16) 14 BUN (9 - 20 mg/dL) 12 Creatinine (0.7 - 1.2 mg/dL) 0.6 L Estimated GFR (>60 ml/min) > 60 BUN/Creatinine Ratio (7 - 25 %) 20.0 Hematology CBC w Diff NO MAN DIFF REQ WBC (4.8 - 10.8 /CUMM) 8.1 RBC (4.70 - 6.10 /CUMM) 4.63 L Hgb (14.0 - 18.0 G/DL) 13.5 L Hct (42 - 52 %) 40.4 L MCV (80.0 - 94.0 FL) 87.2 MCH (27.0 - 31.0 PG) 29.1 MCHC (33.0 - 37.0 G/DL) 33.4 RDW (11.5 - 14.5 %) 14.9 H Plt Count (130 - 400 /CUMM) 201 MPV (7.4 - 10.4 FL) 10.8 H Gran % (42.2 - 75.2 %) 82.8 H Lymphocytes % (20.5 - 51.1 %) 8.4 L Monocytes % (1.7 - 9.3 %) 8.5 Eosinophils % (0 - 5 %) 0.2 Basophils % (0.0 - 2.0 %) 0.1 Absolute Granulocytes (1.4 - 6.5 /CUMM) 6.7 H Absolute Lymphocytes (1.2 - 3.4 /CUMM) 0.7 L Absolute Monocytes (0.10 - 0.60 /CUMM) 0.7 H Absolute Eosinophils (0.0 - 0.7 /CUMM) 0 Absolute Basophils (0.0 - 0.2 /CUMM) 0 Last 24 Hours of Jesus Results: SPEC #: [id number] KATHI: 04/12/17 STATUS: COMP RECD: 04/12/[address]: Sarthak DOUGLAS,Nagelica SOURCE: TRUNK/O.R. ENTR: 04/12/[address]: Patria DOUGLAS,Santiago Hough SPDESC: [facility] Malik DOUGLAS, Cadencenikki ORDERED: TRUNK OR CULT COMMENT: L4 L5 DIC ASPIRATE 0.5 BLOODY FLUID Recent Imaging Studies: MRI spine 04/15 FINDINGS: There are chronic changes of a spinal fusion with a hardware construct composed of transpedicular screws extending from L3 to L5. There is nonspecific bone marrow edema involving the L5 vertebral body and the anterior upper corner of the S1 vertebral body. There is spinal scoliosis with a rightward convex curvature centered at L3-L4. Right lateral subluxation of L4 on L5. There is grade 1 anterolisthesis of L5 on S1 related to bilateral L5 pars interarticularis defects. Slight grade 1 retrolisthesis of L2 on L3. There is loss of intervertebral disc height at multiple levels related to disc degeneration. The tip of the conus medullaris is located at the level of L1. No mass effect on the conus. Visualized distal cord signal intensity is normal. At L1-L2 there is a slight annular bulge. No canal stenosis. No foraminal nerve root compression. At L2-L3 there is a slight diffuse annular bulge. No canal stenosis. Partial effacement of perineural fat without overt compression of the foraminal segments of the L2 nerve roots. At L3-L4 there chronic changes of a decompressive laminectomy. No canal stenosis. The foraminal segments of the L3 nerve root cannot be adequately assessments examination due to the extent of artifact related to metallic hardware. At L4-L5 there is a diffuse annular bulge. No canal stenosis. Although the foraminal segments of the L4 nerve roots are not well assessed on this examination there is at least moderate compression of the foraminal segment of the left L4 nerve root. At L5-S1 there is a diffuse annular bulge. No canal stenosis. Abutment of the foraminal segments of the L5 nerve roots are not well assessed on this examination there is at least moderate compression of the left L5 foraminal nerve root and mild compression of the right L5 foraminal nerve root. Limited visualization of the retroperitoneal structures reveals no abnormal finding. IMPRESSION: There is multilevel degenerative spondylosis of lumbar spine. Grade 1 anterolisthesis of L5 on S1 related to bilateral L5 pars interarticularis defects. Slight right lateral subluxation of L4 on L5. No canal stenosis. There are varying degrees of mass effect on the foraminal segments of the nerve roots as described above. DICTATED BY: Briana DOUGLAS,Aj Campbell DATE/TIME DICTATED:04/15/171620 [employer] DATE/TIME TRANSCRIBED:04/15/171620 Assessment/Plan ID Impression: 66-year-old man with a history of low back pain, status post multiple spinal procedures, most recently 1-1/2 years prior to admission, at which time he underwent revision decompression and instrumented fusion L2 to L5, which was complicated by a durotomy, with recurrent back pain over the last several months , status post several steroid injections and treatment with morphine, with a CT of the lumbar spine 3 weeks prior to admission revealing findings consistent with hardware failure at the L5 level, status post a CT-guided bone biopsy at L4 -L5 11 days prior to admission, with no cultures submitted and with the pathology "negative for evidence of malignancy", admitted on April 11 because of confusion, lethargy and frequent falls, found to be afebrile with a leukocytosis and renal failure. The recent imaging revealing evidence of hardware failure has raised concern for infection, which could be secondary to his recent steroid injections or his previous surgery, and this will need to be ruled out. S/P open biopsy 04/12, OR cultures no growth to date (NGTD at 3 days). He was, unfortunately, begun on antibiotics, which, hopefully, will not affect the OR cultures and he should be followed off antibiotics pending these results. His confusion possibly medication related; pain medication seeking behavior. Leukocytosis/resolved Suggestion: 1. F/U bone biopsy/cultures results; call if fever or hypotension 2. Trend CBC, BMP 3. Follow off antibiotics pending above
[2017-04-15 22:00] VITALS: BP 140/76
[2017-04-16 06:21] VITALS: BP 138/74
--- NOTE | 2017-04-16 07:22 | PN- Housestaff ---
Maria Fernanda DOUGLAS,Terrell 04/16/17 0722: Subjective Follow-up For: Altered mental status Sepsis Subjective: Patient seen and examined. He is seen lying flat in bed resting comfortably. He appears to be in no acute distress. He reports feeling well other than mild/ moderate back pain. He is awake and alert and oriented to person, place, and time. Review of Systems Constitutional: Reports: see HPI. Objective Last 24 Hrs of Vital Signs/I&O Vital Signs Date Time Temp Pulse Resp B/P B/P Pulse O2 O2 Flow FiO2 Mean Ox Delivery Rate 04/16 0928 82 138/74 04/16 0621 97.9 82 22 138/74 97 Room Air 04/15 2200 97.4 74 18 140/76 95 04/15 2136 74 140/76 04/15 1652 67 152/96 04/15 1516 98.9 67 20 152/96 97 Room Air Physical Exam General Appearance: Alert, Oriented X3, Cooperative, No Acute Distress Other Physical Findings: GEN: well developed, thin middle aged man in no acute distress HEENT: NCAT, PERRL, EOMI, anicteric sclera, MMM NECK: Supple, no JVD, trachea midline CARD: Normal S1/S2 w/o m/g/r; RRR PULM: CTA bilaterally ABD: Soft, NT, ND, BS+ NEURO: Awake and alert, AAOx3, CN II-XII grossly intact, coordination/sensation/ gait/speech intact PSYCH: good insight, eye contact, and judgment, normal affect EXT: normal pulses, no cyanosis, clubbing, edema Current Medications: Current Medications Sig/Velvet Start time Last Medication Dose Route Stop Time Status Admin Acetaminophen 1,000 MG Q8P PRN 04/12 0330 04/16 IV 0153 Benzocaine 1 SHELLEY TID PRN 04/15 2015 04/15 TOP 2151 Clonidine 0.1 MG TID 04/15 1000 04/16 PO 0928 Duloxetine HCl 30 MG BID 04/12 1000 04/16 PO 09 Heparin Sodium 5,000 UNIT Q8 04/12 0600 04/16 (Porcine) SC 0614 Ketorolac 30 MG ONCE PRN 04/15 2045 04/15 Tromethamine IV 2317 Ketorolac 30 MG ONCE ONE 04/15 1015 DC Tromethamine IV 04/15 1016 Lidocaine 1 PAT DAILY 04/14 1000 AC 04/16 EXT 0927 Melatonin 5 MG AT BEDTIME 04/15 2330 AC 04/15 PO 2351 Morphine Sulfate 10 MG Q12P PRN 04/15 1615 AC 04/16 PO 0348 Omeprazole 40 MG DAILY AC 04/12 0700 AC 04/16 PO 0627 Pregabalin 75 MG BID 04/15 1153 AC 04/16 PO 0929 Sumatriptan Succinate 6 MG ONE ONE 04/16 1015 UNVr SC 04/16 1016 Trimethobenzamide HCl 200 MG 4 TIMES/DAY PRN 04/12 0330 AC IM Last 24 Hrs of Lab/Jesus Results Last 24 Hrs of Labs/Mics: Laboratory Tests 04/16/17 0737: RPR Titer/FTA Pending, Lyme Disease Antibody Pending 04/16/17 0737: Anion Gap 12, Estimated GFR > 60, BUN/Creatinine Ratio 21.7, Vitamin B12 Pending , TSH &T3 &Free T4 Intrp 0.508, CBC w Diff NO MAN DIFF REQ, RBC 4.55 L, MCV 85.9, MCH 29.2, MCHC 34.0, RDW 14.6 H, MPV 10.4, Gran % 76.0 H, Lymphocytes % 11.8 L, Monocytes % 11.5 H, Eosinophils % 0.3, Basophils % 0.4, Absolute Granulocytes 5.8, Absolute Lymphocytes 0.9 L, Absolute Monocytes 0.9 H, Absolute Eosinophils 0, Absolute Basophils 0, HIV 1&2 Ab Western Blot Pending Assessment/Plan Assessment: 66 year old man with multiple medical problems significant for significant lumbar spine disease requiring multiple surgeries and associated chronic pain with recent L5 biopsy on 04/01/17 seen for evaluation of weakness, nausea, vomiting, and confusion. There was concern for pneumonia for which broad spectrum antibiotics were given, however spinal infection needed to be assessed. Patient was admitted to the general medicine floor for evaluation of these findings. Patient continues to remain afebrile without leukocytosis with cultures demonstrating no growth to date. He remains awake and alert and more conversve than ever previously seen. He was started on low dose lyrica and morphine last night which he tolerated uneventfull. Psychiatry evaluated the pain whom agreed that opiates may have been the etiology of her acute delerium. He was extensively counseled in taking his pain medications as prescribed. Lumbar MRI demonstrated several known chronic findings. 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 Plan -General Medicine -Avoid given extra narcotics due to delerium -Clonidine 0.1mg PO TID started for hypertension -Lyrica 75 mg PO BID started, (Home dose 300 mg) -Morphine 10 mg PO BID PRN PAIN started -Tigan PRN for nausea -Continue home meds: cymbalta, omeprazole -Neuro/Psych consults for delerium evaluation -Infectious disease consult for infectious evaluation -Ortho consult for lumbar spine disease and possible infection -Consults with ortho and infectious disease -PT evaluation: -Follow up cultures & sensitivites -Follow up lumbar MRI -Pain control with lidocaine, toradol, lyrica -Regular Diet -DVT PPx -DNR/DNI Problem List: 1. Acute delirium Pain Ratin Pain Location: Back Pain Goal: Pain 4 or less Pain Plan: See assessment Tomorrow's Labs & Rationales: None Angelica De León MD 04/16/17 1232: Attending MD Review Statement Attending Statement Attending MD Statement: examined this patient, discuss w/resident/PA/SCIENTIFIC ILLUSTRATOR, agreed w/resident/PA/SCIENTIFIC ILLUSTRATOR, discussed with family, reviewed EMR data (avail), discussed with nursing, discussed with case mgmt, reviewed images, amended to note Attending Assessment/Plan: Patient seen and examined, much more alert and oriented today. He was able to answer all my questions appropriately. I had a lengthy discussion with the patient. It turns out that patient was taking morphine without even knowing that he's taking morphine and most likely had taken higher than recommended dose of morphine. Patient has been prescribed MSIR by Dr. Terrance balderas in [place]. He is also taking Cymbalta as well as Lyrica prescribed by Dr. Ragsdale who is his neurologist. He claims that he has been taking Cymbalta and Lyrica at this dose for quite a while. He was also complaining of migraine headaches and was requesting Imitrex injection which she takes as his regular medication as needed. We will give the Imitrex injection. I counseled the patient on the use off morphine as recommended. At this time patient is getting 10 mg of morphine sulfate twice a day. Upon discharge he would recommend that patient should only take caffeine milligrams of MSIR once a day. All of his cultures have remained negative. His MRI does not show any evidence of passed to myelitis or any other acute problem. He does have pretty bad degenerative disc disease in the lumbar sacral spine MRI. He is being followed by Isacc Mendosa MD. Patient is able to walk with a walker and will get physical therapy to come and work with him. I have also spoken to patient's and explained to her all the details at length. Patient's is willing to keep morphine in the lock box and only give him once a day as we recommend. Patient to follow-up with orthopedic Isacc Mendosa MD and Dr. Bo as an outpatient. He will also follow-up with his neurologist as an outpatient. And currently he is being followed off of antibiotics. After seen by PT, if performs well then he can be discharged home today.
[2017-04-16 08:20] LABS: ABSOLUTE BASOPHIL COUNT 0 /CUMM (0.0-0.2); ABSOLUTE EOSINOPHIL COUNT 0 /CUMM (0.0-0.7); ABSOLUTE GRANULOCYTE CT 5.8 /CUMM (1.4-6.5); ABSOLUTE LYMPH COUNT 0.9 /CUMM (1.2-3.4); ABSOLUTE MONOCYTE COUNT 0.9 /CUMM (0.10-0.60); BASOPHIL % 0.4 % (0.0-2.0); EOSINOPHIL % 0.3 % (0-5); HEMATOCRIT 39.1 % (42-52); MEAN CORPUSCULAR HGB 29.2 PG (27.0-31.0); MEAN CORPUSCULAR VOLUME 85.9 FL (80.0-94.0); MEAN PLATELET VOLUME 10.4 FL (7.4-10.4); PLATELET COUNT 217 /CUMM (130-400); RBC DISTRIBUTION WIDTH 14.6 % (11.5-14.5); RED BLOOD CELL CT 4.55 /CUMM (4.70-6.10); WHITE BLOOD CELL COUNT 7.7 /CUMM (4.8-10.8)
--- NOTE | 2017-04-16 08:53 | Patient Discharge Instructions ---
Discharge Instructions General Discharge Information Special Instructions: Follow up with your primary care provider and your orthopedic team (Dr. Batista/ Dr. Mendosa) after discharge. Rest as needed and do everything in your power to avoid falls. Continue all your previous medications. DO NOT TAKE MORPHINE MORE THAN PRESCRIBED. Consider obtaining a lockbox and have them dispensed to you daily. Follow up with your pain specialist Dr. Carlos after discharge. Acute Coronary Syndrome Inclusion Criteria At DC or during hospital stay patient has or had the following: ACS DIAGNOSIS No Discharge Core Measures Meds if any: Prescribed or Continued at Discharge Meds if any: NOT Prescribed or Continued at Discharge Congestive Heart Failure Inclusion Criteria At DC or during hospital stay patient has or had the following: CHF DIAGNOSIS No Discharge Core Measures Meds if any: Prescribed or Continued at Discharge Meds if any: NOT Prescribed or Continued at Discharge Cerebrovascular accident Inclusion Criteria At DC or during hospital stay patient has or had the following: CVA/TIA Diagnosis No Discharge Core Measures Meds if any: Prescribed or Continued at Discharge Meds if any: NOT Prescribed or Continued at Discharge Venous thromboembolism Inclusion Criteria VTE Diagnosis No VTE Type NONE VTE Confirmed by (Test) NONE Discharge Core Measures - Per Current guidelines, there needs to be overlap - treatment for the first 5 days of Warfarin therapy. - If discharged on Warfarin prior to 5 days of - overlap therapy, the patient will need to be - assessed for post discharge needs including - *Post discharge parental anticoagulation - *Warfarin and/or parental anticoagulation education - *Follow up date to check INR post discharge At least 5 days overlap therapy as Inpatient No Meds if any: Prescribed or Continued at Discharge Note: Overlap Therapy is Warfarin and Anticoagulant Meds if any: NOT Prescribed or Continued at Discharge
--- NOTE | 2017-04-16 13:46 | Cons- Psychiatry ---
Isacc Lino 04/16/17 1330: Psychiatric Consult Date of Consult: 04/16/17 Reason for Consult: Altered mental status History of Present Illness: The patient is a 66 yo male with a history of migraine, gastroparesis, and chronic back pain s/p multiple back and neck surgeries presenting with altered mental status in the ED 5 days ago and admitted for delirium. Psych: Patient feels better today. He cannot remember what happened last week when he was confused and agitated. He says that he was a "jerk". He denies suicidal ideations, any history of suicide attempts, homicidal ideations, auditory/visual hallucinations, delusions, obsessions, or paranoia. He denies hopelessness, helplessness, or guilt. He reports that he is happy with a supportive and 2 great successful children. Patient is an avid athlete. He used to run marathons, bike for miles, and swim for hours, but he has stopped because of his chronic back pain problems. When asked what he will do now, he says that he has a dog who keeps him busy, but has no hobbies right now to take up his free time, especially since he is retired. He is sleeping okay (about 6-7 hours) without any daytime sleepiness or difficulty falling asleep. However, he gets up 2-3 times a night to use the bathroom. He has very little appetite because of his pain and his gastroparesis and reports losing 10 to 15 lbs over past month. Patient denies smoking, alcohol, or illicit substance abuse and reports taking his medications himself as prescribed. He denies taking his pain medications more than prescribed or dependence on pain medications. However, he does report that he takes more on occassions when he has severe pain. He states that he wants his to take care of his medications in the future. Patient notes father had dementia and from it. Patient notes that it could affect him as well. Patient agrees to try [place] outpatient psychiat[facility] for help with pain and mental status. Allergies: Coded Allergies: Sulfa (Sulfonamide Antibiotics) (Severe, TONGUE SWELLING, RASH 04/11/17) Current Medications: Current Medications Sig/Velvet Start time Last Medication Dose Stop Time Status Admin Acetaminophen 1,000 MG Q8P PRN 04/12 0330 AC 04/16 (Ofirmev) 0153 Benzocaine 1 SHELLEY TID PRN 04/15 2014 AC 04/15 (Orajel) 215 Clonidine 0.1 MG TID 04/15 1000 AC 04/16 (Catapres) 0928 Duloxetine HCl 30 MG BID 04/12 1000 AC 04/16 (Cymbalta) 0927 Heparin Sodium 5,000 UNIT Q8 04/12 0600 AC 04/16 (Porcine) 0614 Ketorolac 30 MG ONCE PRN 04/15 2045 AC 04/15 Tromethamine 2317 (Toradol) Lidocaine 1 PAT DAILY 04/14 1000 AC 04/16 (Lidoderm) 0927 Melatonin 5 MG AT BEDTIME 04/15 2330 AC 04/15 (Melatonin) 2351 Morphine Sulfate 10 MG Q12P PRN 04/15 1615 AC 04/16 0348 Omeprazole 40 MG DAILY AC 04/12 0700 AC 04/16 (Prilosec) 0627 Potassium Chloride 20 MEQ BID 04/16 1012 AC (Klor) Pregabalin 75 MG BID 04/15 1153 AC 04/16 (Lyrica) 0929 Trimethobenzamide HCl 200 MG 4 TIMES/DAY PRN 04/12 0330 AC (Tigan) Past History Past Medical History Neurological: MIGRAINES EENT: NONE Cardiovascular: NONE Respiratory: NONE Gastrointestinal: GASTROPARESIS Hepatic: NONE Renal: NONE Musculoskeletal: fibromyalgia Psychiatric: NONE Endocrine: NONE Blood Disorders: NONE Cancer(s): NONE MONEY EXAMINER/Reproductive: NONE Past Surgical History Surgical History: BACK SURGERIES INCLUDING LUMBAR FUSION STATUS POST UVULECTOMY STATUS POST RIGHT PRONATOR RELEASE Psychosocial History Strengths/Capabilities: Forward thinking, motivated for treatment, supportive family. Physical Limitations (Interventions): Chronic back pain, unsure of ambulatory status. Psychiatric Treatment History Psych Treatment Psychiatric Treatment Yes (Denies) Inpatient Treatment No Outpatient Treatment Yes Location of Treatment [facility] Reason for Treatment Help manage chronic back pain Dates of Treatment 11/2012 Diagnosis: R/O Depressive d/o, NOS Risk Factors: male Substance Use/Abuse History Drug Use/Abuse Substances Used/Abused No (Denies) Substance Abuse Treatment Substance Abuse Treatment Past Substance Abuse [place] No Assessment/Plan Mental Status Orientation: Person, Place, Situation Affect: WNL Speech: WNL Neuro-vegetative: Appetite Decreased Mental Status Exam: Patient is dressed in hospital attire and lying in bed. He is cooperative and answers all questions. His speech was normal in rate and volume. He maintained good eye contact. His thought process was linear and goal directed although at few times, it was tangential. He denies suicidal ideations, homicidal ideations, delusions, obsessions, or paranoia. He denies auditory/visual hallucinations. His mood was "good" and his affect was full and congruent. His insight and judgment was fair. He was oriented to person, place, situation, and time. Lab Results: Laboratory Tests 04/16 04/16 0737 0737 Chemistry Sodium (137 - 145 mmol/L) 138 Potassium (3.5 - 5.1 mmol/L) 3.4 L Chloride (98 - 107 mmol/L) 105 Carbon Dioxide (22 - 30 mmol/L) 21 L Anion Gap (5 - 16) 12 BUN (9 - 20 mg/dL) 13 Creatinine (0.7 - 1.2 mg/dL) 0.6 L Estimated GFR (>60 ml/min) > 60 BUN/Creatinine Ratio (7 - 25 %) 21.7 Vitamin B12 (239 - 931 pg/mL) > 1000 H TSH &T3 &Free T4 Intrp (0.27 - 4.20 uIU/mL) 0.508 Hematology CBC w Diff NO MAN DIFF REQ WBC (4.8 - 10.8 /CUMM) 7.7 RBC (4.70 - 6.10 /CUMM) 4.55 L Hgb (14.0 - 18.0 G/DL) 13.3 L Hct (42 - 52 %) 39.1 L MCV (80.0 - 94.0 FL) 85.9 MCH (27.0 - 31.0 PG) 29.2 MCHC (33.0 - 37.0 G/DL) 34.0 RDW (11.5 - 14.5 %) 14.6 H Plt Count (130 - 400 /CUMM) 217 MPV (7.4 - 10.4 FL) 10.4 Gran % (42.2 - 75.2 %) 76.0 H Lymphocytes % (20.5 - 51.1 %) 11.8 L Monocytes % (1.7 - 9.3 %) 11.5 H Eosinophils % (0 - 5 %) 0.3 Basophils % (0.0 - 2.0 %) 0.4 Absolute Granulocytes (1.4 - 6.5 /CUMM) 5.8 Absolute Lymphocytes (1.2 - 3.4 /CUMM) 0.9 L Absolute Monocytes (0.10 - 0.60 /CUMM) 0.9 H Absolute Eosinophils (0.0 - 0.7 /CUMM) 0 Absolute Basophils (0.0 - 0.2 /CUMM) 0 Serology RPR Titer/FTA (NONREACTIVE) NONREACTIVE Lyme Disease Antibody (RATIO) Pending HIV 1&2 Ab Western Blot (NONREACTIVE) NONREACTIVE Diffential Diagnosis: Delirium secondary to medications (most likely from Lyrica and MSIR combined), r /o infection Impression: Patient is a 66 yo marrried male presenting with altered mental status 5 days ago and admitted for delirum. Currently, patient oriented x 4. Patient improved gradually and delirium believed to be from combination of Lyrica or MSIR. Infection from recent back biopsy or other sources have not yet been confirmed. Patient denies substance abuse or taking more pain medications than prescribed. But Dr. Riojas notes that there were missing MSIR pills. Patient denies being depressed and denies suicidal ideations, homicidal ideations, auditory/visual hallucinations, delusions, obsessions, or paranoia. However, he used to be an avid athlete and now, his pain limits his activities. Patient may benefit from outpatient psychiatry to deal with pain and mental status. Provisional Treatment Plan: 1. No psychiatric medications/interventions indicated at this time. 2. Follow improvement from delirium. 3. Patient agrees to [facility] for pain and mental status. Appointment will be made for patient. Thank you for this consult. Abdoul Hutchison APRN 04/17/17 0825: Assessment/Plan Provisional Treatment Plan: I agree with the contents of this note. I will procur an appointment at [facility] and notify the patient of the details.
--- NOTE | 2017-04-16 14:39 | Discharge Summary ---
Visit Information Visit Dates Admission Date: 04/11/17 Discharge Date: 04/16/17 Hospital Course Course Attending Physician: Angelica De León MD Primary Care Physician: Patria DOUGLAS,Santiago Hough Consulting Request: 1 Consulting Specialty: Infectious Disease Consulting Request: 2 Consulting Specialty: Orthopedics Consulting Request: 3 Consulting Specialty: Psychiatry Hospital Course: 66-year-old past medical history of multiple neck/low back surgeries, chronic back pain, gastroparesis, migraines, GERD seen for evaluation of altered mental status. Patient underwent a CT guided bone biopsy on 04/01/16 of his L4/L5 lumbar area which was sent for pathology and for some reason not for culture in anticipation of an eventual surgery patient would require. 3 days prior to admission patient 's Maryl noticed that he was becoming more confused and having "twitches ". He also additionally reported severe fatigue, nausea, vomiting, and decreased oral intake. He was seen by his orthopedist Dr. Bo of [place] on the day of admission room referred him to the ED as he apparently looked "as pale as a sheet". ED course -Vital signs: Temp 97.6-98.8, HR 88-102, RR 14-20, BP 113-138/64-75, O2 89-96% on 2.0 L via nasal cannula -CBC: WBC 18.1, bands 9, hemoglobin 16.8, hematocrit 50.4, platelet 245 -BMP: Sodium 143, potassium 4.7, chloride 101, CO2 22, urea 32, creatinine 2.9, anion gap 20 -LFT: AST 19, ALT 17, ALP 107 -Miscellaneous: ESR 2, CRP quantitative >9.0, CRP high sensitivity >15.0 -Urinalysis: Negative nitrate/glucoside esterase, 15-25 WBC with white cell casts -Urine toxicology: Positive for opiates -Lumbar puncture: WBC 1, RBC 58, glucose 82, protein 70 -CXR: Unremarkable examination -CT abdomen/pelvis without IV contrast: * No change in the appearance of the hardware failure at L5 as described which has recently been biopsied. No paraspinal fluid collection. * Bilateral nephrolithiasis with no hydronephrosis. * Marked gastric distention. The gallbladder is also significantly distended. * Mild ill-defined patchy airspace opacities at the lung bases which may represent atelectasis. -CT head without IV contrast: No acute intracranial hemorrhage or territorial infarction, limited study with motion artifact Problem List on Admission -Altered mental status, possible toxic metabolic encephalopathy -Anion gap metabolic acidosis -Acute kidney injury, probable pre-renal azotemia -Elevated lactic acid -Multiple neck/back surgeries with recent L4/L5 bone biopsy -Chronic back pain, on pain management -Migraines -Gastroparesis -GERD Hospital Course Patient was admitted to the general medicine floor for further evaluation. Blood and urine cultures were obtained in the ED in addition to a lumbar puncture.Patient was started on empiric vancomycin / ceftazidime for possible pneumonia/sepsis. Patient had markedly improved leukocytosis shortly on and was never febrile. Consult with infectious disease and orthopedics were obtained given his medical history. Patient was followed of antibiotics and a second set of biopsies were obtained of the L4/L5 vertebral bodies to assess for signs of infection. Patient had waxing/waning mental status changes require sedation, restraints, and patient safety monitor. Clinically it appeared he had a toxic metabolic encephalopathy, however opiate narcosis was suspected for which his morphine sulfate was held. Patient slowly improved back to his mental baseline and his pain medications were slowly restarted. He was seen and evaluated by psychiatry whom agreed with our assessment and advocated great caution with further narcotics. It was later determined that patient may have been taking extra doses of his MSIR. Collateral information from Dr. Mendosa reveals that he had a similar episode to this in the past when he was given Dilaudid. Physical therapy evaluated the patient whom felt he was safe for a home discharge. Cultures remain no growth to date at time of discharge. Pathology and biopsies are to be followed up as an outpatient with Dr. Mendosa or Dr. Bo. Patient is to follow up with his orthopedic team, his pain specialist and his primary care provider after discharge. He was given extensive counseling regarding proper usage of his narcotic medications. Allergies: Coded Allergies: Sulfa (Sulfonamide Antibiotics) (Severe, TONGUE SWELLING, RASH 04/11/17) Significant Procedures: SERVICE DATE: 04/11/17-1722 EXAM TYPE: RAD - XRY-CHEST XRAY, TWO VIEWS IMPRESSION: Unremarkable examination. SERVICE DATE: 04/11/17-1925 EXAM TYPE: CAT - CT ABD & PELVIS W/O IV CONTRAS IMPRESSION: No change in the appearance of the hardware failure at L5 as described which has recently been biopsied. No paraspinal fluid collection. Bilateral nephrolithiasis with no hydronephrosis. Marked gastric distention. The gallbladder is also significantly distended. Mild ill-defined patchy airspace opacities at the lung bases which may represent atelectasis. SERVICE DATE: 04/11/17 EXAM TYPE: CAT - CT HEAD WO IV CONTRAST IMPRESSION: No acute intracranial hemorrhage or territorial infarction. Slightly limited study with motion artifacts. SERVICE DATE: 04/12/17 EXAM TYPE: RAD - NO CHARGE EXAM IMPRESSION: Successful CT-guided aspiration of the L4 vertebral body, L5 vertebral body and L4-L5 disc interspace. SERVICE DATE: 04/15/17- EXAM TYPE: MRI - MRI-LUMBAR SPINE W & W/O GABE IMPRESSION: There is multilevel degenerative spondylosis of lumbar spine. Grade 1 anterolisthesis of L5 on S1 related to bilateral L5 pars interarticularis defects. Slight right lateral subluxation of L4 on L5. No canal stenosis. There are varying degrees of mass effect on the foraminal segments of the nerve roots as described above. Disposition Summary Disposition Principal Diagnosis: Acute delerium, narcotic induced Additional Diagnosis: Sepsis Discharge Disposition: home or self care Discharge Instructions General Discharge Information Code Status: Do Not Resucitate/Intubat Patient's Diet: Regular diet Patient's Activity: Per PT assessment Follow-Up Instructions/Appts: Follow up with your primary care provider and your orthopedic team (Dr. Batista/ Dr. Mendosa) after discharge. Rest as needed and do everything in your power to avoid falls. Continue all your previous medications. DO NOT TAKE MORPHINE MORE THAN PRESCRIBED. Consider obtaining a lockbox and have them dispensed to you daily. Follow up with your pain specialist Dr. Carlos after discharge. Medications at Discharge Discharge Medications: Continue taking these medications: Duloxetine HCl (Cymbalta) (Unknown Strength) 30 Milligram ORAL TWICE DAILY Days = 30 Dexlansoprazole (Dexilant) 60 MG 1 Capsule ORAL DAILY Celecoxib (Celecoxib) 200 MG CAPSULE 1 Capsule ORAL TWICE DAILY Qty = 180 Zolpidem Tartrate (Zolpidem Tartrate) 10 MG TABLET 1 Tablet ORAL Every night Qty = 30 Comments: Last Taken:11/25/16 Time:8:47 Sumatriptan Succinate (Sumatriptan Succinate) 6 MG/0.5 ML PEN.INJCTR 6 Milligram Right Ear As Directed as needed for MIGRAINES Qty = 2 Comments: Last Taken:11/26/16 Time:12PM Sumatriptan Succinate (Imitrex) 50 MG TABLET 1 Tablet ORAL As Directed as needed for MIGRAINES Qty = 27 Onabotulinumtoxina (Botox) 200 UNIT VIAL 1 VIAL Right Ear As Directed as needed for MIGRAINES Qty = 1 Multiple Vitamin (Multivitamins) 1 EACH TABLET 1 Tablet ORAL DAILY Morphine Sulfate (Morphine Sulfate) 15 MG TABLET 1 Tablet ORAL DAILY Qty = 30 Pregabalin (Lyrica) 300 MG CAPSULE 1 Capsule ORAL TWICE DAILY Copies To: Terrance DOUGLAS,Thiago; Anupam DOUGLAS,Luan Eric; Patria DOUGLAS,Santiago Hough
[2017-04-16 15:22] VITALS: BP 146/100
[2017-04-16 17:35] VITALS: BP 148/86
--- NOTE | 2017-04-16 17:39 | PN- Infect Dx ---
Subjective Subjective: Feeling better; improved back pain. Review of Systems Comments: 12 points reviewed as noted, otherwise negative. Objective Last 24 Hrs of Vital Signs/I&O Vital Signs Date Time Temp Pulse Resp B/P B/P Pulse O2 O2 Flow FiO2 Mean Ox Delivery Rate 04/16 1522 98.0 74 20 146/100 96 Room Air 04/16 0928 82 138/74 04/16 0621 97.9 82 22 138/74 97 Room Air 04/15 2200 97.4 74 18 140/76 95 04/15 2136 74 140/76 Intake & Output 04/16 1600 04/16 0800 04/16 0000 Intake Total 620 Output Total Balance 620 Intake, Oral 620 Number 1 Bowel Movements Physical Exam Other Physical Findings: Afebrile. He is awake and alert, confused, but in no acute distress. Skin reveals no rash. HEENT negative. Neck is supple with no adenopathy. Lungs are clear. Heart regular rhythm with no murmur. Abdomen is soft, nontender with positive bowel sounds. Back no CVA tenderness; dressing lower back in place. Extremities no cyanosis, clubbing or edema. Neuro awake and alert Results Last 24 Hours of Lab Results: Laboratory Tests 04/16 04/16 0737 0737 Chemistry Sodium (137 - 145 mmol/L) 138 Potassium (3.5 - 5.1 mmol/L) 3.4 L Chloride (98 - 107 mmol/L) 105 Carbon Dioxide (22 - 30 mmol/L) 21 L Anion Gap (5 - 16) 12 BUN (9 - 20 mg/dL) 13 Creatinine (0.7 - 1.2 mg/dL) 0.6 L Estimated GFR (>60 ml/min) > 60 BUN/Creatinine Ratio (7 - 25 %) 21.7 Vitamin B12 (239 - 931 pg/mL) > 1000 H TSH &T3 &Free T4 Intrp (0.27 - 4.20 uIU/mL) 0.508 Hematology CBC w Diff NO MAN DIFF REQ WBC (4.8 - 10.8 /CUMM) 7.7 RBC (4.70 - 6.10 /CUMM) 4.55 L Hgb (14.0 - 18.0 G/DL) 13.3 L Hct (42 - 52 %) 39.1 L MCV (80.0 - 94.0 FL) 85.9 MCH (27.0 - 31.0 PG) 29.2 MCHC (33.0 - 37.0 G/DL) 34.0 RDW (11.5 - 14.5 %) 14.6 H Plt Count (130 - 400 /CUMM) 217 MPV (7.4 - 10.4 FL) 10.4 Gran % (42.2 - 75.2 %) 76.0 H Lymphocytes % (20.5 - 51.1 %) 11.8 L Monocytes % (1.7 - 9.3 %) 11.5 H Eosinophils % (0 - 5 %) 0.3 Basophils % (0.0 - 2.0 %) 0.4 Absolute Granulocytes (1.4 - 6.5 /CUMM) 5.8 Absolute Lymphocytes (1.2 - 3.4 /CUMM) 0.9 L Absolute Monocytes (0.10 - 0.60 /CUMM) 0.9 H Absolute Eosinophils (0.0 - 0.7 /CUMM) 0 Absolute Basophils (0.0 - 0.2 /CUMM) 0 Serology RPR Titer/FTA (NONREACTIVE) NONREACTIVE Lyme Disease Antibody (RATIO) Pending HIV 1&2 Ab Western Blot (NONREACTIVE) NONREACTIVE Last 24 Hours of Jesus Results: SPEC #: [id number] KATHI: 04/12/17 STATUS: COMP RECD: 04/12/[address]: Sarthak DOUGLAS,[facility] SOURCE: TRUNK/O.R. ENTR: 04/12/[address]: Patria DOUGLAS,Santiago Hough SPDESC: [facility] Malik DOUGLAS, [facility] ORDERED: TRUNK OR CULT COMMENT: L5 BONE ASPIRATE BLOODY FLUID Procedure Result > GRAM STAIN Final 04/13/17-0736 WHITE BLOOD CELLS NONE OTHER NO ORGANISMS SEEN > TRUNK AREA OR CULTURE Final 04/15/17-1045 NO GROWTH AFTER 3 DAYS Recent Imaging Studies: MRI IMPRESSION: There is multilevel degenerative spondylosis of lumbar spine. Grade 1 anterolisthesis of L5 on S1 related to bilateral L5 pars interarticularis defects. Slight right lateral subluxation of L4 on L5. No canal stenosis. There are varying degrees of mass effect on the foraminal segments of the nerve roots as described above. DICTATED BY: Briana DOUGLAS,Aj Campbell DATE/TIME DICTATED:04/15/171620 DOUGHNUT MACHINE OPERATOR HELPER:ALEKSANDER DATE/TIME TRANSCRIBED:04/15/171620 Assessment/Plan ID Impression: 66-year-old man with a history of low back pain, status post multiple spinal procedures, most recently 1-1/2 years prior to admission, at which time he underwent revision decompression and instrumented fusion L2 to L5, which was complicated by a durotomy, with recurrent back pain over the last several months , status post several steroid injections and treatment with morphine, with a CT of the lumbar spine 3 weeks prior to admission revealing findings consistent with hardware failure at the L5 level, status post a CT-guided bone biopsy at L4 -L5 11 days prior to admission, with no cultures submitted and with the pathology "negative for evidence of malignancy", admitted on April 11 because of confusion, lethargy and frequent falls, found to be afebrile with a leukocytosis and renal failure. The recent imaging revealing evidence of hardware failure has raised concern for infection, which could be secondary to his recent steroid injections or his previous surgery. S/P open biopsy 04/12, OR cultures no growth to date (NGTD at 3 days). He was, unfortunately, begun on antibiotics, which, hopefully, will not affect the OR cultures and during the hospital was followed off antibiotics w/o displaying signs or symtoms of infection. Of note the path report from 04/12 "negative malignancy"; no bone submitted, but liquid material labeled CSF (?) Metabolic encephalopathy; pain medication seeking behavior. Leukocytosis/resolved Suggestion: 1. Call if fever or hypotension. 2. Trend CBC, BMP, ESR weekly x4 weeks. 3. Follow off antibiotics pending final OR cultures at 5 d.
--- NOTE | 2017-04-17 09:52 | Incdntl Nt Psy ---
Incidental Note Notation: TC to the patient this morning, , to offer an OPS appointment. He is not sure when his back surgery at [facility] is scheduled, agrees that a return to OPS would be interesting, and asked that this automotive service writer call him in two weeks if he forgets to call and make an appt.
== END 2017-04-16 18:30 | DRG 987 ==
LOC: ERH 16:31 → ERHI 22:36 → 2NB 22:36 → ENRESERV 04-12 04:56 → 2NB 04-12 05:25 → ENPENDDIS 04-16 15:15 → ENTRNSPT 04-16 18:14 → EDTRNSPTSTS 04-16 18:26 → EDTRNSPT 04-16 18:26 → 2NB 04-16 18:30 → CMPTRNSPT 04-16 18:32
PROVIDERS: Emergency Medicine; Internal Medicine; Internal Medicine Hematology & Oncology; Internal Medicine Interventional Cardiology; Preventive Medicine Public Health & General Preventive Medicine; Radiology Vascular & Interventional Radiology
PROC: 009U3ZX Drainage of Spinal Canal, Percutaneous Approach, Diagnostic (ICD-10-PCS; 2017-04-11)
PROC: 0Q903ZX Drainage of Lumbar Vertebra, Percutaneous Approach, Diagnostic (ICD-10-PCS; principal; 2017-04-12)
DX: T40.2X1A Poisoning by other opioids, accidental (unintentional), initial encounter (principal); J96.01 Acute respiratory failure with hypoxia; G92 Toxic encephalopathy; N17.9 Acute kidney failure, unspecified; K31.84 Gastroparesis; E87.2 Acidosis; F05 Delirium due to known physiological condition; T84.038A Mechanical loosening of other internal prosthetic joint, initial encounter; G43.909 Migraine, unspecified, not intractable, without status migrainosus; K21.9 Gastro-esophageal reflux disease without esophagitis; G89.29 Other chronic pain; M79.7 Fibromyalgia; E86.0 Dehydration; N20.0 Calculus of kidney; Z98.1 Arthrodesis status; Z66 Do not resuscitate; M54.5 Low back pain; M51.36 Other intervertebral disc degeneration, lumbar region; M47.896 Other spondylosis, lumbar region; Y83.8 Other surgical procedures as the cause of abnormal reaction of the patient, or of later complication, without mention of misadventure at the time of the procedure; Y92.009 Unspecified place in unspecified non-institutional (private) residence as the place of occurrence of the external cause
CPT/HCPCS: 2NSBP; 72149; 86618; 87070; 87075; 87205; ERO; 36415; 36592; 71046; 72158; 74176; 77012; 80307; 81001; 82436; 87040; 87086; 87389; 87449; 87450; 87804; 87804-59; 88305; 93005; 93010; 96374; 96375; 97116-GO; 97161-GP; 97530-GO; 99232; 99233; 99291; A9579; G0480; J0131; J0696; J0713; J1630; J1644; J1885; J2310; J2930; J3030; J3250; J3370; J7042; J7060

== ENCOUNTER 2017-08-13 12:55 | Emergency (ER) | payer OTHER, MEDICARE ==
[~2017-08-13] VITALS: Ht 177.8 cm; Wt 65.3 kg
[~2017-08-13 12:55] MED LIST changes: +MORPHINE SULFAT15 M4 PO
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
--- NOTE | 2017-08-13 14:18 | CT SCAN REPORT ---
EXAMINATION: CT CHEST WITHOUT CONTRAST CLINICAL INFORMATION: Fall onto left side. Rib cage pain. COMPARISON: Multiple priors, including chest CT performed 01/26/2016. TECHNIQUE: Multidetector volumetric CT imaging of the chest was done. Axial MIP volume rendering provided. Sagittal and coronal reformatted images were obtained. DLP: 235 mGy-cm FINDINGS: LUNGS: The central airways are patent. There is an area of bronchiectasis at the anterior medial aspect of the right upper lobe. Additional linear scarring is associated. This is similar to previous. No new consolidation. No pneumothorax or pleural effusion. MEDIASTINUM: The heart is normal in size. Coronary artery calcifications are present. No pericardial effusion. No mediastinal lymphadenopathy. PLEURA: There is no pleural effusion. No pleural mass or thickening. AXILLA: No lymphadenopathy. UPPER ABDOMEN: Bilateral renal calculi are noted. No hydronephrosis. OSSEOUS STRUCTURES: There are multiple healed chronic left lateral rib fractures. There is no acute rib fracture. Cervical fusion hardware is seen at C5-C7. Lumbar fusion hardware is also partially visualized. IMPRESSION: No acute traumatic findings. No acute rib fractures are seen. Chronic healed left lateral rib fractures are noted. Chronic changes in the right upper lobe with bronchiectasis and scarring.
[2017-08-13] MEDS ORDERED: MORPHINE SULFAT15 M3 PO (14:29)
[2017-08-13 14:34] VITALS: BP 140/80
== END 2017-08-13 14:35 ==
LOC: ERH 12:55
DX: R07.81 Pleurodynia (principal)

== ENCOUNTER → 2017-10-30 | Day surgery (SDC) | payer OTHER, MEDICARE ==
[~2017-10-30] VITALS: Ht 175.3 cm; Wt 65.8 kg
[~2017-10-30] MED LIST changes: +MORPHINE SULFAT15 M3 PO
--- NOTE | 2017-10-30 15:24 | Operative Report ---
Operative/Inv Procedure Report Surgery Date: 10/30/17 Name of Procedure: Cataract extraction lens implantation right eye Pre-Operative Diagnosis: Age related cataract right eye 20/30 vision 20/70 glare vision Post-Operative Diagnosis: Same Estimated Blood Loss: none Surgeon/Continuous Absorption Process Operator: Piyush DOUGLAS,Walt Campbell Anesthesia: local monitored anesthesi Complications: None Operative/Procedure Note Note: The patient was brought to the operating room standard monitoring equipment was attached the patient was prepped and draped in the usual fashion for intraocular surgery. A lid speculum was placed to retract the lids. The case was begun by making 1 partial-thickness corneal relaxing incision at 85. A temporal incision with a 2.4 mm keratome. The eye was stabilized with a Gomez ring during this incision. 1 mL of non-preserved lidocaine was introduced into the anterior chamber to provide anesthesia. The anterior chamber was then filled and deepened with viscoelastic. A curvilinear capsulorrhexis was achieved using a 30-gauge needle and is a cystotome and capsulorrhexis was finished using a Utrata forceps. A second or paracentesis incision was made temporally with a 1 mm MVR blade. The lens was then hydrodissected with balanced salt solution and found to be rotatable. The lens was emulsified using phacoemulsification and a modified four-quadrant cracking technique. The residual cortical material was removed using automated irrigation and aspiration and as much of the anterior capsular rim was cleaned as well as possible. The posterior capsule was cleaned first with the automated machine on a low setting and then manually with a Jordan squeegee. The capsular bag was deepened with viscoelastic. The lens a Technis 1 21.0 diopter placed into the bag under direct visualization and rotated so that the haptics were at 12 and 6:00. Viscoelastic was then removed from the eye by flushing it out and then by automated irrigation and aspiration. The eye was pressurized to a normal tone. 1/10 of a cc of cefuroxime solution was introduced into the anterior chamber to provide antibiotic prophylaxis. The wounds were sealed by hydrating the stroma adjacent to them and the eye was left at a proper tone after the wounds were checked and found not to be leaking. The lid speculum was removed from the orbit. Antibiotic and steroid drops were placed on the eye and then the eye was shielded. Monitoring equipment was removed from the patient and the patient was removed from the operative suite to the holding area. The patient tolerated the procedure well and will be seen in the office tomorrow.
== END ==
LOC: STS 02:33
DX: H25.9 Unspecified age-related cataract (principal); G43.909 Migraine, unspecified, not intractable, without status migrainosus; M19.90 Unspecified osteoarthritis, unspecified site; K21.9 Gastro-esophageal reflux disease without esophagitis
CPT/HCPCS: J2250; V2632

== ENCOUNTER → 2017-11-01 | Day surgery (SDC) | payer OTHER, MEDICARE ==
[~2017-11-01] VITALS: Ht 175.3 cm; Wt 65.8 kg
--- NOTE | 2017-11-01 09:30 | Operative Report ---
Operative/Inv Procedure Report Surgery Date: 11/01/17 Name of Procedure: Open reduction internal fixation right DIPReduction internal fixation right DIP Pre-Operative Diagnosis: Symptomatic mallet rightSymptomatic mallet right long finger DIP long finger DIP Post-Operative Diagnosis: SameSame Estimated Blood Loss: scant Surgeon/Electrical Engineering Draftsperson: Dani Toussaint MD Anesthesia: laryngeal mask airway Operative/Procedure Note Note: Which was counseled regarding the procedure the alternatives the risks and expected outcomes is released is requesting surgical intervention to treat his symptomatic right long finger DIP following infection and loss of the extensor apparatus distally. He has a K wire pin fixation due to his activity level. We talked about pin site infections nonunion infection pain bleeding numbness loss of soft tissue to sleep. Once agree to informed consent was signed. He was taken to the operating and placed supine on the table. Venodyne boots were placed laryngeal mask anesthesia was established and intravenous antibiotics given. Digital block was placed in the right long finger. With the mini C-arm showing adequate bony stock. An H incision was made over the DIP and the joint was opened. It was debrided back of cartilaginous surfaces with the use of rongeurs and rasps. Copious irrigation was carried out. Under direct fluoroscopy a K wire was placed retrograde through the DIP and then antegrade through the middle phalanx. Good purchase was established. An additional second K wire was placed obliquely with good position based on fluoroscopy. The wires were cut beneath the skin level. Wound was again irrigated and closed with a splint Finger was assessed preoperatively with the mini C-arm showing adequate bony stock. An H incision was made over the DIP and the joint was opened. It was debrided back of cartilaginous surfaces with the use of rongeurs and rasps. Copious irrigation was carried out. Under direct fluoroscopy a K wire was placed retrograde through the DIP and then antegrade through the middle phalanx. Good purchase was established. An additional second K wire was placed obliquely with good position based on fluoroscopy. Wires were cut beneath the skin level. Wound was again irrigated and closed with a splint. End dictation patient was counseled regards to the procedure the alternatives the risks and expected outcomes as relates to his request for surgical intervention to treat a symptomatic right long finger DIP following infection and loss of the extensor apparatus distally. He has asked for a K wire pin fixation due to his activity level. We talked about pin site infections nonunion infection pain bleeding numbness loss of soft tissues distally. Once agreed to informed consent was signed. He was taken to the operating room placed supine on the table. Venodyne boots were placed laryngeal mask anesthesia was established and intravenous antibiotics given. Digital block was placed in the right long finger.
== END ==
LOC: STS 01:30
DX: M20.011 Mallet finger of right finger(s) (principal); I48.0 Paroxysmal atrial fibrillation; M54.5 Low back pain
CPT/HCPCS: J0690; J2250

== ENCOUNTER → 2017-11-12 | Day surgery (SDC) | payer OTHER, MEDICARE ==
[~2017-11-12] VITALS: Ht 175.3 cm; Wt 68.0 kg
--- NOTE | 2017-11-12 09:03 | Operative Report ---
Operative/Inv Procedure Report Surgery Date: 11/12/17 Name of Procedure: Cataract extraction lens implantation left eye Pre-Operative Diagnosis: Age-related cataract left eye 20/25 vision 20/60 glare vision Post-Operative Diagnosis: Same Estimated Blood Loss: none Surgeon/Crusher Loader Operator: Piyush DOUGLAS,Walt Campbell Anesthesia: local monitored anesthesi Complications: None Operative/Procedure Note Note: The patient was brought to the operating room standard monitoring equipment was attached the patient was prepped and draped in the usual fashion for intraocular surgery. A lid speculum was placed to retract the lids. The case was begun by making 1 partial-thickness corneal relaxing incision at 110. A temporal incision with a 2.4 mm keratome. The eye was stabilized with a Gomez ring during this incision. 1 mL of non-preserved lidocaine was introduced into the anterior chamber to provide anesthesia. The anterior chamber was then filled and deepened with viscoelastic. A curvilinear capsulorrhexis was achieved using a 30-gauge needle and is a cystotome and capsulorrhexis was finished using a Utrata forceps. A second or paracentesis incision was made temporally with a 1 mm MVR blade. The lens was then hydrodissected with balanced salt solution and found to be rotatable. The lens was emulsified using phacoemulsification and a modified four-quadrant cracking technique. The residual cortical material was removed using automated irrigation and aspiration and as much of the anterior capsular rim was cleaned as well as possible. The posterior capsule was cleaned first with the automated machine on a low setting and then manually with a Jordan squeegee. The capsular bag was deepened with viscoelastic. The lens a Technis 1 20.5 Diopter placed into the bag under direct visualization and rotated so that the haptics were at 12 and 6:00. Viscoelastic was then removed from the eye by flushing it out and then by automated irrigation and aspiration. The eye was pressurized to a normal tone. 1/10 of a cc of cefuroxime solution was introduced into the anterior chamber to provide antibiotic prophylaxis. The wounds were sealed by hydrating the stroma adjacent to them and the eye was left at a proper tone after the wounds were checked and found not to be leaking. The lid speculum was removed from the orbit. Antibiotic and steroid drops were placed on the eye and then the eye was shielded. Monitoring equipment was removed from the patient and the patient was removed from the operative suite to the holding area. The patient tolerated the procedure well and will be seen in the office tomorrow.
== END ==
LOC: STS 04:07
DX: H25.9 Unspecified age-related cataract (principal); G43.909 Migraine, unspecified, not intractable, without status migrainosus
CPT/HCPCS: J2250; V2632